=== PATIENT | male | born 1970 | race Caucasian/White ===

== ENCOUNTER 2023-01-02 20:23 | Emergency (ER) | payer MEDICARE, MEDICAID, SELFPAY ==
--- NOTE | ~2023-01-02 | US_ITS ---
EXAMINATION: US VENOUS ULTRASOUND WITH DOPPLER LOWER EXTREMITY, LEFT CLINICAL INFORMATION: Edema. Pain. COMPARISON: None available. TECHNIQUE: Ultrasound of the deep veins is performed from the hip to the calf with compression sonography and color and pulse Doppler assessment. Spectral analysis with color-flow imaging is performed. FINDINGS: There is normal venous compression and respiratory variation and augmented flow. The visualized common femoral vein, superficial femoral vein, profunda femoral vein, popliteal vein, and the trifurcation region shows no evidence of deep venous thrombosis. There is no significant popliteal fossa cyst. If the patient's symptoms persist, followup ultrasound in 5 days 7 days might be of value to exclude proximal propagation from a non-visualized calf vein. US/US venous duplex LE IMPRESSION: No DVT demonstrated in the left lower extremity.
--- NOTE | 2023-01-02 20:40 | ED.GENADULT ---
HPI - General Adult General Chief complaint: Extremity Injury, Lower <NELSON Esparza - Last Filed: 01/02/23 20:41> Stated complaint: L leg swelling <NELSON Esparza - Last Filed: 01/02/23 20:41> Time Seen by Provider: 01/03/23 01:01 <NELSON Esparza - Last Filed: 01/02/23 20:41> Source: patient <Mary De León MD - Last Filed: 01/03/23 01:25> Mode of arrival: ambulatory <Mary De León MD - Last Filed: 01/03/23 01:25> Limitations: no limitations <Mary De León MD - Last Filed: 01/03/23 01:25> History of Present Illness HPI narrative: Patient comes to the emergency room complaining of 3 days of erythema in the lateral aspect of the left lower extremity. Patient states that he has had cellulitis in the past. Patient denies any injury. Patient denies fever chills. Patient states that the lower extremity hurts from the ankle up to below the left knee. <Mary De León MD - Last Filed: 01/03/23 01:25> Related Data Home medications: Previous Rx's Medication Instructions Recorded cephalexin 500 mg capsule 500 mg PO BID #20 caps 01/03/23 doxycycline hyclate 100 mg capsule 100 mg PO BID #20 caps 01/03/23 <NELSON Esparza - Last Filed: 01/02/23 20:41> Allergies/adverse reactions: Allergies Allergy/AdvReac Type Severity Reaction Status Date / Time Unable to Assess Allergy Unverified 01/02/23 20:41 <NELSON Esparza - Last Filed: 01/02/23 20:41> Review of Systems Review of Systems: Constitutional : No Weight loss, No Fever, No Chills, No Night Sweats, No Fatigue, No Malaise ENT/Mouth : No Hearing loss, No Ear Pain, No Nasal Congestion, No Sinus Pain, No Hoarseness, No sore throat, No Rhinorrhea, No Swallowing Difficulty Eyes: No Eye Pain, No Swelling, No Redness, No Foreign Body, No Discharge, No Vision Changes Cardiovascular : No Chest Pain, No SOB, No Dyspnea on Exertion, No Orthopnea, No Edema, No Palpitations Respiratory : No Cough, No Sputum, No Wheezing, No Smoke Exposure, No Dyspnea Gastrointestinal : No Nausea, No Vomiting, No Diarrhea, No Constipation, No abdominal Pain, No Hematochezia, No Melena Genitourinary : no irregular bleeding, No Dysuria, No Urinary Frequency, No Hematuria, No Urinary Incontinence, No Urgency, No Flank Pain, No Urinary Flow Changes, No Hesitancy Musculoskeletal : Pain and swelling of the left lower extremity No Myalgias, No Joint Swelling Skin : Erythema in the lateral aspect of the left lower extremity Neuro : No Weakness, No Numbness, No Paresthesias, No Loss of Consciousness, No Dizziness, No Headache Psych : No Anxiety/Panic, No Depression, No SI/HI/AH/VH, No Social Issues, Heme/Lymph: No Bruising, No Bleeding,No Lymphadenopathy Endocrine : No Polyuria, No Polydipsia, No Temperature Intolerance <Mary De León MD - Last Filed: 01/03/23 01:25> [facility] Social History Social History: Social History Alcohol intake: never Smoked in Last 30 Days: No Use of substances other than those prescribed or required for medical reasons: No Advance Directives: No Advance Directives Information Provided: Yes <NELSON Esparza - Last Filed: 01/02/23 20:41> Physical Exam ED Vital Signs: Vital Signs - 24 hr 01/02/23 20:47 01/03/23 00:21 Temperature 98.4 F 98.1 F Pulse Rate 80 74 Respiratory Rate 16 19 Blood Pressure 155/91 H 170/86 H Pulse Oximetry 98 98 Oxygen Delivery Method Room Air Room Air BMI result Body Mass Index 35.9 <NELSON Esparza - Last Filed: 01/02/23 20:41> Vital Signs - 24 hr 01/02/23 20:47 01/03/23 00:21 Temperature 98.4 F 98.1 F Pulse Rate 80 74 Respiratory Rate 16 19 Blood Pressure 155/91 H 170/86 H Pulse Oximetry 98 98 Oxygen Delivery Method Room Air Room Air BMI result Body Mass Index 35.9 <Mary De León MD - Last Filed: 01/03/23 01:25> Const Other: Appearance: Alert. Oriented X3. No acute distress. Eyes: Pupils equal, round and reactive to light. ENT: Pharynx normal. Neck: Normal inspection. Neck supple. No lymph nodes noted. No crepitus CVS: Normal heart rate and rhythm. Pulses normal. Normal S1 and S2 Respiratory: No respiratory distress. Breath sounds normal. No Wheezing. No rales Abdomen: Soft and nontender. No rigidity. No distention. Skin: Skin warm and dry. There is a 15 x 10 cm patch of erythema in the left lower extremity on the lateral aspect Extremities: No lower extremity edema. No Lacerations, see skin above, minimal pain to palpation in the left calf Neuro: Oriented X 3. No motor deficit. No sensory deficit. Moving all extremities. No slurred speech. CN 2 through 12 grossly intact Psych: calm, cooperative, normal affect <Mary De León MD - Last Filed: 01/03/23 01:25> Course Course Course Narrative: RME performed by Ines Lund PA-C. Patient is a 52 year old assigned male at presenting to the emergency department with left lower leg pain. Patient states that it has gotten significantly more swollen over the last 2 days. Patient states that he is a diabetic. Labs, imaging, and swab ordered. Patient placed back in the waiting room pending room availability and results. <NELSON Espazra - Last Filed: 01/02/23 20:41> Medical Decision Making Medical Decision Making MDM Narrative: -ultrasound of the left lower extremity and fibula by me: Veins seem a patent, DVT not suspected. White blood cell count 9.2, no fever, no hypotension, sepsis not suspected. -patient will be started on p.o. antibiotics. <Mary De León MD - Last Filed: 01/03/23 01:25> Differential Diagnosis Differential Diagnoses: The differential diagnosis associated with the presentation includes (Cellulitis, contusion, DVT) <Mary De León MD - Last Filed: 01/03/23 01:25> Lab Data [facility] Lab Attestation statement: I reviewed the patient's lab results. <Mary De León MD - Last Filed: 01/03/23 01:25> Result Diagrams: 01/02/23 21:27 01/02/23 21:27 <NELSON Esparza - Last Filed: 01/02/23 20:41> Labs: Lab Results 01/02/23 01/02/23 01/02/23 Range/Units 21:27 21:27 21:27 WBC 9.2 (4.8-10.8) X10*3/uL RBC 5.65 (4.60-5.80) X10*6/uL Hgb 15.7 (14.0-18.0) g/dl Hct 44.7 (42.0-52.0) % MCV 79.1 L (80.0-98.0) fL MCH 27.8 (27.0-33.0) pg MCHC 35.1 (31.0-36.0) g/dl RDW 13.2 (11.0-16.0) % Plt Count 208 (160-400) X10*3/uL MPV 10.0 (9.4-12.4) fL Immature Gran % (Auto) 0.4 (0.0-0.4) % Neut % (Auto) 77.4 H (45-73) % Lymph % (Auto) 16.1 L (20-40) % [place] % (Auto) 5.3 (2-11) % Eos % (Auto) 0.5 (0-4) % Baso % (Auto) 0.3 (0-2) % Lymph # (Auto) 1.5 (1.2-4.9) X10*3/uL [place] # (Auto) 0.5 (0.1-1.2) X10*3/uL Eos # (Auto) 0.1 (0.0-0.4) X10*3/uL Baso # (Auto) 0.0 (0.0-0.2) X10*3/uL Abs Immat Gran (auto) 0.04 H (0.00-0.03) X10*3/uL Absolute Neuts (auto) 7.1 (2.0-8.3) x10*3/uL Absolute Nucleated RBC 0.000 (0.0-0.012) X10*3/uL Nucleated RBC % (auto) 0.0 (0.0-0.2) /100WBC ESR 6 (0-15) MM/HR Sodium 141 (135-145) mmol/L Potassium 3.8 (3.3-5.1) mmol/L Chloride 106 (96-108) mmol/L Carbon Dioxide 27 (22-29) mmol/L Anion Gap 12 (12-20) BUN 16 (9-16) mg/dL Creatinine 1.13 (0.5-1.4) mg/dL Estim Creat Clear Calc 96.4 Estimated GFR > 60 Random Glucose 329 H (60-115) mg/dL Calcium 9.5 (8.4-10.2) mg/dL Magnesium 2.0 (1.6-2.6) mg/dL Total Bilirubin 1.2 H (0.0-1.0) mg/dL AST 31 (5-37) U/L ALT 42 H (0-40) U/L Alkaline Phosphatase 68 (39-117) U/L C-Reactive Protein 0.35 (< or = 0.50) mg/dL Total Protein 6.9 (6.5-8.0) g/dL Albumin 4.3 (3.5-5.0) g/dL COVID-19 (LOIS) (Negative) COVID-19 Clin Com 01/02/23 Range/Units 21:27 WBC (4.8-10.8) X10*3/uL RBC (4.60-5.80) X10*6/uL Hgb (14.0-18.0) g/dl Hct (42.0-52.0) % MCV (80.0-98.0) fL MCH (27.0-33.0) pg MCHC (31.0-36.0) g/dl RDW (11.0-16.0) % Plt Count (160-400) X10*3/uL MPV (9.4-12.4) fL Immature Gran % (Auto) (0.0-0.4) % Neut % (Auto) (45-73) % Lymph % (Auto) (20-40) % [place] % (Auto) (2-11) % Eos % (Auto) (0-4) % Baso % (Auto) (0-2) % Lymph # (Auto) (1.2-4.9) X10*3/uL [place] # (Auto) (0.1-1.2) X10*3/uL Eos # (Auto) (0.0-0.4) X10*3/uL Baso # (Auto) (0.0-0.2) X10*3/uL Abs Immat Gran (auto) (0.00-0.03) X10*3/uL Absolute Neuts (auto) (2.0-8.3) x10*3/uL Absolute Nucleated RBC (0.0-0.012) X10*3/uL Nucleated RBC % (auto) (0.0-0.2) /100WBC ESR (0-15) MM/HR Sodium (135-145) mmol/L Potassium (3.3-5.1) mmol/L Chloride (96-108) mmol/L Carbon Dioxide (22-29) mmol/L Anion Gap (12-20) BUN (9-16) mg/dL Creatinine (0.5-1.4) mg/dL Estim Creat Clear Calc Estimated GFR Random Glucose (60-115) mg/dL Calcium (8.4-10.2) mg/dL Magnesium (1.6-2.6) mg/dL Total Bilirubin (0.0-1.0) mg/dL AST (5-37) U/L ALT (0-40) U/L Alkaline Phosphatase (39-117) U/L C-Reactive Protein (< or = 0.50) mg/dL Total Protein (6.5-8.0) g/dL Albumin (3.5-5.0) g/dL COVID-19 (LOIS) Negative (Negative) COVID-19 Clin Com See Note <NELSON Esparza - Last Filed: 01/02/23 20:41> Lab Results 01/02/23 01/02/23 01/02/23 Range/Units 21:27 21:27 21:27 WBC 9.2 (4.8-10.8) X10*3/uL RBC 5.65 (4.60-5.80) X10*6/uL Hgb 15.7 (14.0-18.0) g/dl Hct 44.7 (42.0-52.0) % MCV 79.1 L (80.0-98.0) fL MCH 27.8 (27.0-33.0) pg MCHC 35.1 (31.0-36.0) g/dl RDW 13.2 (11.0-16.0) % Plt Count 208 (160-400) X10*3/uL MPV 10.0 (9.4-12.4) fL Immature Gran % (Auto) 0.4 (0.0-0.4) % Neut % (Auto) 77.4 H (45-73) % Lymph % (Auto) 16.1 L (20-40) % [place] % (Auto) 5.3 (2-11) % Eos % (Auto) 0.5 (0-4) % Baso % (Auto) 0.3 (0-2) % Lymph # (Auto) 1.5 (1.2-4.9) X10*3/uL [place] # (Auto) 0.5 (0.1-1.2) X10*3/uL Eos # (Auto) 0.1 (0.0-0.4) X10*3/uL Baso # (Auto) 0.0 (0.0-0.2) X10*3/uL Abs Immat Gran (auto) 0.04 H (0.00-0.03) X10*3/uL Absolute Neuts (auto) 7.1 (2.0-8.3) x10*3/uL Absolute Nucleated RBC 0.000 (0.0-0.012) X10*3/uL Nucleated RBC % (auto) 0.0 (0.0-0.2) /100WBC ESR 6 (0-15) MM/HR Sodium 141 (135-145) mmol/L Potassium 3.8 (3.3-5.1) mmol/L Chloride 106 (96-108) mmol/L Carbon Dioxide 27 (22-29) mmol/L Anion Gap 12 (12-20) BUN 16 (9-16) mg/dL Creatinine 1.13 (0.5-1.4) mg/dL Estim Creat Clear Calc 96.4 Estimated GFR > 60 Random Glucose 329 H (60-115) mg/dL Calcium 9.5 (8.4-10.2) mg/dL Magnesium 2.0 (1.6-2.6) mg/dL Total Bilirubin 1.2 H (0.0-1.0) mg/dL AST 31 (5-37) U/L ALT 42 H (0-40) U/L Alkaline Phosphatase 68 (39-117) U/L C-Reactive Protein 0.35 (< or = 0.50) mg/dL Total Protein 6.9 (6.5-8.0) g/dL Albumin 4.3 (3.5-5.0) g/dL COVID-19 (LOIS) (Negative) COVID-19 Clin Com 01/02/23 Range/Units 21:27 WBC (4.8-10.8) X10*3/uL RBC (4.60-5.80) X10*6/uL Hgb (14.0-18.0) g/dl Hct (42.0-52.0) % MCV (80.0-98.0) fL MCH (27.0-33.0) pg MCHC (31.0-36.0) g/dl RDW (11.0-16.0) % Plt Count (160-400) X10*3/uL MPV (9.4-12.4) fL Immature Gran % (Auto) (0.0-0.4) % Neut % (Auto) (45-73) % Lymph % (Auto) (20-40) % [place] % (Auto) (2-11) % Eos % (Auto) (0-4) % Baso % (Auto) (0-2) % Lymph # (Auto) (1.2-4.9) X10*3/uL [place] # (Auto) (0.1-1.2) X10*3/uL Eos # (Auto) (0.0-0.4) X10*3/uL Baso # (Auto) (0.0-0.2) X10*3/uL Abs Immat Gran (auto) (0.00-0.03) X10*3/uL Absolute Neuts (auto) (2.0-8.3) x10*3/uL Absolute Nucleated RBC (0.0-0.012) X10*3/uL Nucleated RBC % (auto) (0.0-0.2) /100WBC ESR (0-15) MM/HR Sodium (135-145) mmol/L Potassium (3.3-5.1) mmol/L Chloride (96-108) mmol/L Carbon Dioxide (22-29) mmol/L Anion Gap (12-20) BUN (9-16) mg/dL Creatinine (0.5-1.4) mg/dL Estim Creat Clear Calc Estimated GFR Random Glucose (60-115) mg/dL Calcium (8.4-10.2) mg/dL Magnesium (1.6-2.6) mg/dL Total Bilirubin (0.0-1.0) mg/dL AST (5-37) U/L ALT (0-40) U/L Alkaline Phosphatase (39-117) U/L C-Reactive Protein (< or = 0.50) mg/dL Total Protein (6.5-8.0) g/dL Albumin (3.5-5.0) g/dL COVID-19 (LOIS) Negative (Negative) COVID-19 Clin Com See Note <Mary De León MD - Last Filed: 01/03/23 01:25> Radiology Impression Discussion of test interpretation with radiology: I have reviewed the radiologist's reading. <Mary De León MD - Last Filed: 01/03/23 01:25> Radiologist Impression: FINDINGS: There is normal venous compression and respiratory variation and augmented flow. The visualized common femoral vein, superficial femoral vein, profunda femoral vein, popliteal vein, and the trifurcation region shows no evidence of deep venous thrombosis. ? There is no significant popliteal fossa cyst. If the patient's symptoms persist, followup ultrasound in 5 days 7 days might be of value to exclude proximal propagation from a non-visualized calf vein. US/US venous duplex LE LT IMPRESSION: No DVT demonstrated in the left lower extremity. <Mary De León MD - Last Filed: 01/03/23 01:25> Discharge Plan Discharge Clinical Impression: Cellulitis <NELSON Esparza - Last Filed: 01/02/23 20:41> Patient Disposition: Home, Self-Care <NELSON Esparza - Last Filed: 01/02/23 20:41> Instructions: Cellulitis (ED) <NELSON Esparza - Last Filed: 01/02/23 20:41> Additional Instructions: Please follow-up with your primary care physician tomorrow. If you have any worsening or new symptoms, please return to the emergency room or call 911 <NELSON Esparza - Last Filed: 01/02/23 20:41> Prescriptions: New cephalexin 500 mg capsule 500 mg PO BID Qty: 20 0RF doxycycline hyclate 100 mg capsule 100 mg PO BID Qty: 20 0RF <NELSON Esparza - Last Filed: 01/02/23 20:41>
[2023-01-02 20:47] VITALS: BP 155/91; PULSE 80; RESP 16; TEMP 36.9; O2SAT 98; BMI 35.9
[2023-01-02 21:34] LABS: MANUAL DIFF FLAG NO
[2023-01-02 21:36] LABS: Basophils Percent Auto 0.3 % (0-2); Eosinophils Absolute Auto 0.1 X10*3/uL (0.0-0.4); Eosinophils Percent Auto 0.5 % (0-4); Hematocrit 44.7 % (42.0-52.0); Hemoglobin 15.7 g/dl (14.0-18.0); Imm Gran Abs Auto 0.04 X10*3/uL (0.00-0.03); Imm Gran Pct Auto 0.4 % (0.0-0.4); Lymphocytes Absolute Auto 1.5 X10*3/uL (1.2-4.9); Lymphocytes Percent Auto 16.1 % (20-40); Mean Corpuscular HGB Conc 35.1 g/dl (31.0-36.0); Mean Corpuscular Hemoglobin 27.8 pg (27.0-33.0); Mean Corpuscular Volume 79.1 fL (80.0-98.0); Monocytes Absolute Auto 0.5 X10*3/uL (0.1-1.2); Monocytes Percent Auto 5.3 % (2-11); Neutrophils Absolute Auto 7.1 x10*3/uL (2.0-8.3); Neutrophils Percent Auto 77.4 % (45-73); Platelet Count 208 X10*3/uL (160-400); Red Blood Count 5.65 X10*6/uL (4.60-5.80); Red Cell Distribution Width 13.2 % (11.0-16.0); White Blood Count 9.2 X10*3/uL (4.8-10.8)
[2023-01-02 21:49] LABS: COVID-19 Test Negative (Negative); IDNOW Serial# 08D9AD1C
[2023-01-02 21:55] LABS: Alanine Aminotransferase 42 U/L (0-40); Albumin Level 4.3 g/dL (3.5-5.0); Alkaline Phosphatase 68 U/L (39-117); Anion Gap 12 (12-20); Aspartate Amino Transferase 31 U/L (5-37); Bilirubin Total 1.2 mg/dL (0.0-1.0); Blood Urea Nitrogen 16 mg/dL (9-16); C Reactive Protein 0.35 mg/dL (< or = 0.50); Calcium 9.5 mg/dL (8.4-10.2); Carbon Dioxide 27 mmol/L (22-29); Chloride 106 mmol/L (96-108); Creatinine Clr Calc Pharmacy 96.4; Estimated Glomerular Filt Rate > 60; Glucose Random 329 mg/dL (60-115); Potassium 3.8 mmol/L (3.3-5.1); Sodium 141 mmol/L (135-145); Total Protein 6.9 g/dL (6.5-8.0)
[2023-01-02 22:23] LABS: Erythrocyte Sedimentation Rate 6 MM/HR (0-15)
[2023-01-03 00:21] VITALS: BP 170/86; PULSE 74; RESP 19; TEMP 36.7; O2SAT 98
--- OUTSIDE RECORDS SUMMARY | 2023-01-03 00:59 | XMS_ITS | Continuity of Care Document ---
Author Name Unknown Organization [facility] Adult Address [address] [place] [id number]- Care Team Providers Care Transport Tank Technician Name Role Phone Socrates KEMP, Jonathan Breaux Primary Care Physician [phone] Encounter [facility] Date(s): 09/06/21 - 10/06/21 [facility] [address] [place] [id number] Allergies, Adverse Reactions, Alerts No Known Allergies Immunizations Given and Recorded Vaccine Date Status Refusal Reason SARS-CoV-2 (COVID-19) mRNA BNT-162b2 vac 07/26/21 Recorded influenza virus vaccine, inactivated 07/02/21 Aleksandr rded influenza virus vaccine, inactivated 07/18/19 Give n SARS-CoV-2 (COVID-19) Ad26 vaccine 12/30/20 Given Influenza Virus Vaccine (oldterm) 07/09/20 Recorde d pneumococcal 23-valent vaccine 03/03/18 Given Medications amLODIPine 10 mg oral tablet 10 mg, 1, tablet, By Mouth, Daily, # 90 tablet, Refills 1, Tot. Refills 1, Maintenance, 09/26/21 13:46:00 EST, Route to Pharmacy Electronically, [facility] #[id number], 175.2, cm, 09/05/21 9:45:00 EST, Height Start Date: 09/26/21 Status: Ordered atorvastatin 10 mg oral tablet 1 tablet = 10 mg, By Mouth, Daily, # 90 tablet, 1 Refills, Maintenance, 09/26/21 13:22:00 EST, [facility] #[id number], 175.2, cm, 09/05/21 9:45:00 EST, Height Start Date: 09/26/21 Status: Ordered benazepril 20 mg oral tablet 1 tablet = 20 mg, By Mouth, Daily, # 90 tablet, 1 Refills, Maintenance, 09/11/21 13:36:00 EST, Tablet, [facility] #[id number], 175.2, cm, 09/05/21 9:45:00 EST, Height Start Date: 09/11/21 Status: Ordered Farxiga 5 mg oral tablet 1 tablet, By Mouth, Daily, # 90 tablet, 0 Refills, 09/26/21 13:22:00 EST, [facility] #[id number], 175.2, cm, 09/05/21 9:45:00 EST, Height Start Date: 09/26/21 Status: Ordered Freestyle Lite Lancets See Instructions, # 300 each, Refills 6, Tot. Refills 6, Maintenance, DMII E11.9 TESTING BID, 10/28/18 13:40:15 EST, Compound Start Date: 10/28/18 Stop Date: 05/26/19 Status: Ordered Freestyle Lite Monitor See Instructions, # 1 each, Refills 5, Tot. Refills 5, Maintenance, DMII E11.9 TESTING BID, 06/02/18 10:14:18 EDT, Compound Start Date: 06/02/18 Stop Date: 11/29/18 Status: Ordered Freestyle Lite Test Strips See Instructions, # 600 each, Refills 6, Tot. Refills 6, Maintenance, DMII E11.9 TESTING BID, 10/28/18 13:40:15 EST, Compound Start Date: 10/28/18 Stop Date: 07/19/20 Status: Ordered glipiZIDE 10 mg oral tablet, extended release 1 tablet = 10 mg, By Mouth, 2 times a day, with breakfast, # 180 tablet, 4 Refills, Maintenance, 09/07/20 13:22:00 EST, ER Tablet, [facility] #[id number], 175.2, cm, 09/07/20 12:25:00 EST, Height Start Date: 09/07/20 Stop Date: 12/01/21 Status: Ordered metFORMIN 1000 mg oral tablet 1 tablet = 1,000 mg, By Mouth, 2 times a day, with meals, # 180 tablet, 2 Refills, Maintenance, 12/03/21 15:55:00 EDT, Tablet, [facility] #[id number], 175.2, cm, 09/05/21 9:45:00 EST, Height Start Date: 12/03/21 Stop Date: 08/30/22 Status: Ordered metFORMIN 1000 mg oral tablet 1 tablet = 1,000 mg, By Mouth, 2 times a day, for 90 days, with meals, # 180 tablet, 0 Refills, Hard Stop 12/03/21 15:55:00 EDT, 09/04/21 15:55:00 EST, Tablet, [facility] #[id number], 175.2, cm,06/14/21 8:20:00 EDT, Height Start Date: 09/04/21 Stop Date: 12/03/21 Status: Ordered Use as directed. DX HTN Use as directed. DX HTN, See Instructions, # 1 each, Refills 0, Tot. 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
--- OUTSIDE RECORDS SUMMARY | 2023-01-03 00:59 | XMS_ITS | Continuity of Care Document ---
Author Name Unknown Organization [facility] Adult Address [address] [place] [address]- Care Team Providers Care Research Agricultural Engineer Name Role Phone Socrates KEMP, Jonathan Breaux Primary Care Physician [phone] Encounter [facility] [place] Date(s): 06/05/20 - 06/12/20 [facility] [address] [place] [id number] [facility] Encounter Diagnosis Left shoulder pain(Discharge Diagnosis) - 06/05/20 Attending Physician: Adelfo PRICE, Lissa Referring Physician: Jonathan Crowell NP Allergies, Adverse Reactions, Alerts Substance Reaction Severity Status NKA Active Immunizations Given and Recorded Vaccine Date Status Refusal Reason influenza virus vaccine, inactivated 07/18/19 Give n pneumococcal 23-valent vaccine 03/03/18 Given Medications amLODIPine 10 mg oral tablet 10 mg, 1, tablet, By Mouth, Daily, # 90 tablet, Refills 1, Tot. Refills 1, Maintenance, 07/18/19 13:55:22 EDT, Route to Pharmacy Electronically, [id number], [facility] #[id number] Start Date: 07/18/19 Status: Ordered atorvastatin 10 mg oral tablet 1 tablet = 10 mg, By Mouth, Daily, # 90 tablet, 3 Refills, Maintenance, 11/24/19 9:49:00 EST, [facility] #[id number], 175.2, cm, 11/24/19 9:25:00 EST, Height Start Date: 11/24/19 Stop Date: 06/21/20 Status: Ordered benazepril 20 mg oral tablet 1 tablet = 20 mg, By Mouth, Daily, # 90 tablet, 3 Refills, Maintenance, 06/05/20 10:10:00 EDT, Tablet, [email or web address] #[id number], 175.2, cm, 06/05/20 9:49:00 EDT, Height Start Date: 06/05/20 Status: Ordered Freestyle Lite Lancets See Instructions, [...] glipiZIDE 10 mg oral tablet, extended release 2 tablet = 20 mg, By Mouth, Daily, with breakfast, # 180 tablet, 2 Refills, Maintenance, 11/24/19 9:51:00 EST, ER Tablet, [facility] #[id number], 175.2, cm, 11/24/19 9:25:00 EST, Height Start Date: 11/24/19 Stop Date: 08/20/20 Status: Ordered metFORMIN 1000 mg oral tablet 1 tablet = 1,000 mg, By Mouth, 2 times a day, with meals, # 180 tablet, 2 Refills, Maintenance, 07/18/19 12:21:11 EDT, Tablet Start Date: 07/18/19 Status: Ordered Problem List Condition Effective Dates Status Health Status Inform ant Morbid obesity with BMI of 5 0.0-59.9, adult(Confirmed) Active Chest pain at rest(Confirmed) Active Chronic back pain(Confirmed) Active Hyperlipidemia(Confirmed) Active HTN (hypertension)(Confirmed) Active BALDEV on CPAP(Confirmed) Active DM (diabetes mellitus), type 2(Confirmed) Active Diagnosis Diagnosis Type Effective Dates Health Status Cl inical Service Informant Left shoulder pain Discharge Diagnosis 06/05/20 Vital Signs Most recent to oldest [Reference Range]: 1 Height 175.2 cm (06/05/20 9:49 AM) Weight 130.8 kg (06/05/20 9:49 AM) Oxygen Saturation [94-100 %] 96 % (06/05/20 9:49 AM) Pulse Rate [55-90 bpm] 78 bpm (06/05/20 9:49 AM) Body Mass Index [18.5-24.99] 42.61 *>HHI* (06/05/20 9:49 AM) Blood Pressure [90-138/55-84 mm Hg] 136/ 80mm Hg (06/05/20 9:49 AM) Respiratory Rate [16-30 br/min] 16 br/mi n (06/05/20 9:49 AM) Mode of Delivery (Oxygen) Room air (06/05/20 9:49 AM) Blood pressure sites Arm, left (06/05/20 9:49 AM) Weight Obtained Via Standing scale (06/05/20 9:49 AM) Social History Social History Type Response Smoking Status Never smoker entered on: 03/03/18 Sex
--- OUTSIDE RECORDS SUMMARY | 2023-01-03 00:59 | XMS_ITS | Continuity of Care Document ---
Author Name Unknown Organization [facility] Adult Address [address] [place] [address]- Care Team Providers Care National Sales Name Role Phone Socrates KEMP, Jonathan Breaux Primary Care Physician Encounter [facility] [place] Date(s): 05/20/22 - 06/21/22 [facility] [address] [place] [address]- Attending Physician: Sushil Pedro MD Allergies, Adverse Reactions, Alerts No Known Allergies [...] tablet, Refills 1, Tot. Refills 1, Maintenance, 06/13/22 10:32:00 EDT, Route to Pharmacy Electronically, [facility] #[id number], 175.2, cm, 06/13/22 10:31:00 EDT, Height, 129, kg, 11/18/21 10:28:00 EST, Dry... Start Date: 06/13/22 Status: Ordered atorvastatin 10 mg oral tablet 1 tablet = 10 mg, By Mouth, Daily, # 90 tablet, 1 Refills, Maintenance, 05/20/22 11:37:00 EDT, [facility] #[id number], 175.2, cm, 02/18/22 14:17:00 EDT, Height, 129, kg, 11/18/21 10:28:00 EST, Dry Weight Start Date: 05/20/22 Status: Ordered benazepril 40 mg oral tablet 1 tablet = 40 mg, By Mouth, Daily, # 90 tablet, 3 Refills, Maintenance, 10/09/21 10:38:00 EST, Tablet, [facility] #[id number], Partial fill upon patient request if the prescription is for a schedule II opioid drug. Dose increase, 175.2, cm, 10/09... Start Date: 10/09/21 Status: Ordered benazepril-hydrochlorothiazide 20 mg-12.5 mg oral tablet 1 tablet, By Mouth, Daily, # 90 tablet, 1 Refills, Maintenance, 06/13/22 10:34:00 EDT, Tablet, [facility] #[id number], Partial fill upon patient request if the prescription is for a schedule II opioid drug., 1 tablet By Mouth Daily, 175.2, cm, 09... Start Date: 06/13/22 Status: Ordered dapagliflozin 10 mg oral tablet 1 tablet = 10 mg, By Mouth, Daily, # 90 tablet, 2 Refills, Maintenance, 06/13/22 10:38:00 EDT, Tablet, [facility] #[id number], Partial fill upon patient request if the prescription is for a schedule II opioid drug., 175.2, cm, 06/13/22 10:31:00 E... Start Date: 06/13/22 Status: Ordered Eucerin Plus topical lotion 1 application, Topically, 2 times a day, PRN for dry skin, Please apply 10 times per day to affected area., # 354 mL, 2 Refills, Maintenance, 02/18/22 15:05:00 EDT, Lotion, [facility] #[id number], Partial fill upon patient request if the prescrip... Start Date: 02/18/22 Status: Ordered Freestyle Lite Lancets See Instructions, [...] a day, with breakfast, # 180 tablet, 1 Refills, Maintenance, 04/14/22 10:56:00 EDT, ER Tablet, [facility] #[id number], 175.2, cm, 02/18/22 14:17:00 EDT, Height, 129, kg, 11/18/21 10:28:00 EST, Dry Weight Start Date: 04/14/22 Stop Date: 10/11/22 Status: Ordered metFORMIN 1000 mg oral tablet 1 tablet = 1,000 mg, By Mouth, 2 times a day, with meals, # 180 tablet, 1 Refills, Maintenance, 05/20/22 13:32:00 EDT, Tablet, [facility] #[id number], 175.2, cm, 02/18/22 14:17:00 EDT, Height, 129, kg, 11/18/21 10:28:00 EST, Dry Weight Start Date: 05/20/22 Stop Date: 11/16/22 Status: Ordered oxyCODONE 5 mg oral tablet See Instructions, 1 tablet By Mouth Every 4-6 hours NEEDED FOR PAIN TAKE WITH FOOD. NO DRIVING. CAN CAUSE CONSTIPATION., Refills 0, Tot. Refills 0, Maintenance, 11/18/21 10:38:00 EST, InstructionsReplace Required Details, Partial fill upon patien... Start Date: 11/18/21 Status: Ordered silver sulfADIAZINE 1% topical cream 1 application, Topically, 2 times a day, # 15 Gm, 0 Refills, Maintenance, 02/11/22 10:42:00 EDT, Cream, Partial fill upon patient request if the prescription is for a schedule II opioid drug. Start Date: 02/11/22 Status: Ordered Tylenol Extra Strength 500 mg oral tablet 2 tablet = 1,000 mg, By Mouth, Every 8 hours, NEEDED FOR PAIN, 0 Refills, Maintenance, 11/18/21 10:39:00 EST, Tablet, Partial fill upon patient request if the prescription is for a schedule II opioid drug. Start Date: 11/18/21 Status: Ordered Use as directed. DX HTN Use as directed. DX HTN, See Instructions, # 1 each, Refills 0, Tot. Refills 0, Maintenance, BP machine/Cuff Use as directed, 09/05/21 9:46:00 EST, Compound Start Date: 09/05/21 Status: Ordered Problem List Condition Confirmation Course Effective Dates Status H ealth Status Informant Morbid obesity with BMI of 50.0-59.9, adult Confirmed Active Chest pain at rest Confirmed Active Chronic back pain Confirmed Active Ganglion of left ankle Confirmed Active Hyperlipidemia Confirmed Active HTN (hypertension) Confirmed Active BALDEV on CPAP Confirmed Active Proteinuria due to type 2 diabetes mellitus Confirmed Active Severe obesity Confirmed Active DM (diabetes mellitus), type 2 Confirmed Active Social History Social History Type Response Smoking Status Never smoker entered on: 03/03/18 Sex Patient Care team information Personnel Name: Jonathan Crowell NP Address: Address: [address] [place], [place] [address]
--- OUTSIDE RECORDS SUMMARY | 2023-01-03 00:59 | XMS_ITS | Continuity of Care Document ---
Author Name Unknown Organization [facility] Adult Address [address] [place] [phone]- Care Team Providers Care Marketing Research Coordinator Name Role Phone Socrates KEMP, Jonathan Breaux Primary Care Physician [place] [facility] [place] - 10/04/21 [facility] [address] [place] [id number] Attending Physician: Not on Staff, Attending MD Allergies, Adverse Reactions, Alerts No Known [...] 09/26/21 13:46:00 EST, Route to Pharmacy Electronically, [facility] #[id number], 175.2, cm, 09/05/21 9:45:00 EST, Height Start Date: 09/26/21 Status: Ordered atorvastatin 10 mg oral tablet 1 tablet = 10 mg, By Mouth, Daily, # 90 tablet, 1 Refills, Maintenance, 09/26/21 13:22:00 EST, [facility] #[id number], 175.2, cm, 09/05/21 9:45:00 EST, Height Start Date: 09/26/21 Status: Ordered benazepril 20 mg oral tablet 1 tablet = 20 mg, By Mouth, Daily, # 90 tablet, 1 Refills, Maintenance, 09/11/21 13:36:00 EST, Tablet, [facility] #[id number], 175.2, cm, 09/05/21 9:45:00 EST, Height Start Date: 09/11/21 Status: Ordered Farxiga 5 mg oral tablet 1 tablet, By Mouth, Daily, # 90 tablet, 0 Refills, 09/26/21 13:22:00 EST, [facility] #[id number], 175.2, cm, 09/05/21 9:45:00 EST, Height Start [...] Refills, Maintenance, 09/07/20 13:22:00 EST, ER Tablet, [facility] #[id number], 175.2, cm, 09/07/20 12:25:00 EST, Height Start Date: 09/07/20 Stop Date: 12/01/21 Status: Ordered metFORMIN 1000 mg oral tablet 1 tablet = 1,000 mg, By Mouth, 2 times a day, with meals, # 180 tablet, 2 Refills, Maintenance, 12/03/21 15:55:00 EDT, Tablet, [facility] #[id number], 175.2, cm, 09/05/21 9:45:00 EST, Height Start Date: 12/03/21 Stop Date: 08/30/22 Status: Ordered metFORMIN 1000 mg oral tablet 1 tablet = 1,000 mg, By Mouth, 2 times a day, for 90 days, with meals, # 180 tablet, 0 Refills, Hard Stop 12/03/21 15:55:00 EDT, 09/04/21 15:55:00 EST, Tablet, [facility] #[id number], 175.2, cm,06/14/21 8:20:00 EDT, Height Start Date: [...]
--- OUTSIDE RECORDS SUMMARY | 2023-01-03 00:59 | XMS_ITS | Continuity of Care Document ---
Author Name Unknown Organization [facility] Adult Address [address] [place] [address]- Care Team Providers Care Maintenance Representative Name Role Phone Jonathan Crowell NP Primary Care Physician Encounter [facility] [place] Date(s): 10/09/21 - 10/16/21 [facility] [address] [place] [id number]- Encounter Diagnosis HTN (hypertension)(Discharge Diagnosis) - 10/09/21 Attending Physician: Not on Staff, Attending MD [...] 09/26/21 13:46:00 EST, Route to Pharmacy Electronically, [facility] #[id number], 175.2, cm, 09/05/21 9:45:00 EST, Height Start Date: 09/26/21 Status: Ordered atorvastatin 10 mg oral tablet 1 tablet = 10 mg, By Mouth, Daily, # 90 tablet, 1 Refills, Maintenance, 09/26/21 13:22:00 EST, [facility] #[id number], 175.2, cm, 09/05/21 9:45:00 EST, Height Start Date: 09/26/21 Status: Ordered benazepril 40 mg oral tablet 1 tablet = 40 mg, By Mouth, Daily, # 90 tablet, 3 Refills, Maintenance, 10/09/21 10:38:00 EST, Tablet, [facility] #[id number], Partial fill upon patient request if the prescription is for a schedule II opioid drug. Dose increase, 175.2, cm, 10/09... Start Date: 10/09/21 Status: Ordered Farxiga 5 mg oral tablet 1 tablet, By Mouth, Daily, # 90 tablet, 0 Refills, 09/26/21 13:22:00 EST, [facility] #[id number], 175.2, cm, 09/05/21 9:45:00 EST, Height Start [...] times a day, for 90 days, with breakfast, # 180 tablet, 4 Refills, Hard Stop 12/01/21 13:22:00 EDT, 09/07/20 13:22:00 EST, ER Tablet, [facility] #[id number], 175.2,cm, 09/07/20 12:25:00 EST, Height Start Date: 09/07/20 Stop Date: 12/01/21 Status: Ordered glipiZIDE 10 mg oral tablet, extended release 1 tablet = 10 mg, By Mouth, 2 times a day, with breakfast, # 180 tablet, 1 Refills, Maintenance, 12/01/21 13:22:00 EDT, ER Tablet, [facility] #[id number], 175.2, cm, 10/09/21 10:42:00 EST, Height Start Date: 12/01/21 Stop Date: 05/30/22 Status: Ordered metFORMIN 1000 mg oral tablet 1 tablet = 1,000 mg, By Mouth, 2 times a day, with meals, # 180 tablet, 2 Refills, Maintenance, 12/03/21 15:55:00 EDT, Tablet, [facility] #[id number], 175.2, cm, 09/05/21 9:45:00 EST, Height Start Date: 12/03/21 Stop Date: 08/30/22 Status: Ordered metFORMIN 1000 mg oral tablet 1 tablet = 1,000 mg, By Mouth, 2 times a day, for 90 days, with meals, # 180 tablet, 0 Refills, Hard Stop 12/03/21 15:55:00 EDT, 09/04/21 15:55:00 EST, Tablet, [facility] #[id number], 175.2, cm,06/14/21 8:20:00 EDT, Height Start Date: [...] Dates Health Status Cl inical Service Informant HTN (hypertension) Discharge Diagnosis 10/09/21 Vital Signs Most recent to oldest [Reference Range]: 1 2 Height 175.2 cm (10/09/21 10:42 AM) 175.2 cm (10/09/21 8:54 AM) Blood Pressure [90-138/55-84 mm Hg] 131/ 95mm Hg (10/09/21 10:42 AM) Social History Social History Type Response Smoking Status Never smoker entered on: 03/03/18 Sex
--- OUTSIDE RECORDS SUMMARY | 2023-01-03 00:59 | XMS_ITS | Continuity of Care Document ---
Author Name Unknown Organization [facility] Adult Address [address] [place] [phone]- Care Team Providers Care Electric Organ Assembler And Checker Name Role Phone Socrates KEMP, Jonathan Breaux Primary Care Physician [place] [facility] [place] 07/02[place]21 - 08/01/21 [facility] [address] [place] [id number] Attending Physician: Admtr, [id number] Admitting Physician: Admtr, Ar8 Referring Physician: Admtr, Ar8 Allergies, Adverse Reactions, Alerts Substance Reaction Severity Status NKA Active Immunizations Given and Recorded Vaccine Date Status Refusal Reason influenza virus vaccine, inactivated 07/02/21 Aleksandr rded influenza virus vaccine, inactivated 07/18/19 Give n SARS-CoV-2 (COVID-19) Ad26 vaccine 12/30/20 Given Influenza Virus Vaccine (oldterm) 07/09/20 Recorde d pneumococcal 23-valent vaccine 03/03/18 Given Medications amLODIPine 10 mg oral tablet 10 mg, 1, tablet, By Mouth, Daily, # 90 tablet, Refills 3, Tot. Refills 3, Maintenance, 09/07/20 13:34:00 EST, Route to Pharmacy Electronically, [facility] #[id number], 175.2, cm, 09/07/20 12:25:00 EST, Height Start Date: 09/07/20 Status: Ordered atorvastatin 10 mg oral tablet 1 tablet = 10 mg, By Mouth, Daily, # 90 tablet, 3 Refills, Maintenance, 09/07/20 13:34:00 EST, [facility] #[id number], 175.2, cm, 09/07/20 12:25:00 EST, Height Start Date: 09/07/20 Status: Ordered benazepril 20 mg oral tablet 1 tablet = 20 mg, By Mouth, Daily, # 90 tablet, 3 Refills, Maintenance, 09/07/20 13:35:00 EST, Tablet, [facility] #[id number], 175.2, cm, 09/07/20 12:25:00 EST, Height Start Date: 09/07/20 Status: Ordered Farxiga 5 mg oral tablet 1 tablet, By Mouth, Daily, # 90 tablet, 0 Refills, [facility] #[id number], 175.2, cm, 09/07/2012:25:00 EST, Height Start Date: 06/07/21 Status: Ordered Freestyle Lite Lancets See Instructions, [...] Refills, Maintenance, 09/07/20 13:22:00 EST, ER Tablet, [facility] #[id number], 175.2, cm, 09/07/20 12:25:00 EST, Height Start [...]
--- OUTSIDE RECORDS SUMMARY | 2023-01-03 00:59 | XMS_ITS | Continuity of Care Document ---
Author Name Unknown Organization [facility] Adult Address [address] [place] [phone]- Care Team Providers Care Doggy Daycare Activities Director Name Role Phone Jonathan Crowell NP Primary Care Physician [place] [facility] [place] 04/02/22 [facility] [address] [place] [phone]- Attending Physician: Not on Staff, Attending MD [...] 09/26/21 13:46:00 EST, Route to Pharmacy Electronically, [facility] #[id number], 175.2, cm, 09/05/21 9:45:00 EST, Height Start Date: 09/26/21 Status: Ordered atorvastatin 10 mg oral tablet 1 tablet = 10 mg, By Mouth, Daily, # 90 tablet, 1 Refills, Maintenance, 09/26/21 13:22:00 EST, [facility] #[id number], 175.2, cm, 09/05/21 9:45:00 EST, Height Start Date: 09/26/21 Status: Ordered benazepril 40 mg oral tablet 1 tablet = 40 mg, By Mouth, Daily, # 90 tablet, 3 Refills, Maintenance, 10/09/21 10:38:00 EST, Tablet, [facility] #[id number], Partial fill upon patient request if the prescription is for a schedule II opioid drug. Dose increase, 175.2, cm, 10/09... Start Date: 10/09/21 Status: Ordered Eucerin Plus topical lotion 1 application, Topically, 2 times a day, PRN for dry skin, Please apply 10 times per day to affected area., # 354 mL, 2 Refills, Maintenance, 02/18/22 15:05:00 EDT, Lotion, [facility] #[id number], Partial fill upon patient request if the prescrip... Start Date: 02/18/22 Status: Ordered Farxiga 5 mg oral tablet 1 tablet, By Mouth, Daily, # 90 tablet, 0 Refills, 10/17/21 11:02:00 EST, [facility] #[id number], 175.2, cm, 10/09/21 10:42:00 EST, Height Start Date: 10/17/21 Status: Ordered Freestyle Lite Lancets See Instructions, [...] Refills, Maintenance, 12/01/21 13:22:00 EDT, ER Tablet, [facility] #[id number], 175.2, cm, 10/09/21 10:42:00 EST, Height Start Date: 12/01/21 Stop Date: 05/30/22 Status: Ordered metFORMIN 1000 mg oral tablet 1 tablet = 1,000 mg, By Mouth, 2 times a day, with meals, # 180 tablet, 2 Refills, Maintenance, 12/03/21 15:55:00 EDT, Tablet, [facility] #[id number], 175.2, cm, 09/05/21 9:45:00 EST, Height Start Date: 12/03/21 Stop Date: 08/30/22 Status: Ordered oxyCODONE 5 mg oral tablet [...]
--- OUTSIDE RECORDS SUMMARY | 2023-01-03 00:59 | XMS_ITS | Continuity of Care Document ---
Author Name Unknown Organization [facility] Adult Address [address] [place] [phone]- Care Team Providers Care Jukebox Operator Name Role Phone Socrates KEMP, Jonathan Breaux Primary Care Physician [place] [facility] [place](s): 09/06/21 - 10/06/21 [facility] [address] [place] [id number] Allergies, Adverse Reactions, Alerts No Known Allergies [...] 09/26/21 13:46:00 EST, Route to Pharmacy Electronically, [facility] #[id number], 175.2, cm, 09/05/21 9:45:00 EST, Height Start Date: 09/26/21 Status: Ordered atorvastatin 10 mg oral tablet 1 tablet = 10 mg, By Mouth, Daily, # 90 tablet, 1 Refills, Maintenance, 09/26/21 13:22:00 EST, [facility] #[id number], 175.2, cm, 09/05/21 9:45:00 EST, Height Start Date: 09/26/21 Status: Ordered benazepril 20 mg oral tablet 1 tablet = 20 mg, By Mouth, Daily, # 90 tablet, 1 Refills, Maintenance, 09/11/21 13:36:00 EST, Tablet, [facility] #[id number], 175.2, cm, 09/05/21 9:45:00 EST, Height Start Date: 09/11/21 Status: Ordered Farxiga 5 mg oral tablet 1 tablet, By Mouth, Daily, # 90 tablet, 0 Refills, 09/26/21 13:22:00 EST, [facility] #[id number], 175.2, cm, 09/05/21 9:45:00 EST, Height Start [...] Refills, Maintenance, 09/07/20 13:22:00 EST, ER Tablet, [facility] #[id number], 175.2, cm, 09/07/20 12:25:00 EST, Height Start Date: 09/07/20 Stop Date: 12/01/21 Status: Ordered metFORMIN 1000 mg oral tablet 1 tablet = 1,000 mg, By Mouth, 2 times a day, with meals, # 180 tablet, 2 Refills, Maintenance, 12/03/21 15:55:00 EDT, Tablet, [facility] #[id number], 175.2, cm, 09/05/21 9:45:00 EST, Height Start Date: 12/03/21 Stop Date: 08/30/22 Status: Ordered metFORMIN 1000 mg oral tablet 1 tablet = 1,000 mg, By Mouth, 2 times a day, for 90 days, with meals, # 180 tablet, 0 Refills, Hard Stop 12/03/21 15:55:00 EDT, 09/04/21 15:55:00 EST, Tablet, [facility] #[id number], 175.2, cm,06/14/21 8:20:00 EDT, Height Start Date: [...]
--- OUTSIDE RECORDS SUMMARY | 2023-01-03 00:59 | XMS_ITS | Continuity of Care Document ---
Author Name Unknown Organization [facility] Address Unknown Care Team Providers Care Dictating Machine Transcriber Name Role Phone Socrates KEMP, Jonathan Breaux Primary Care Physician [place] [facility] [place](s): 02/18/22 - 02/25/22 [facility] Attending Physician: Kiesha Styles MD Allergies, Adverse Reactions, Alerts No Known [...] 09/26/21 13:46:00 EST, Route to Pharmacy Electronically, [facility] #[id number], 175.2, cm, 09/05/21 9:45:00 EST, Height Start Date: 09/26/21 Status: Ordered atorvastatin 10 mg oral tablet 1 tablet = 10 mg, By Mouth, Daily, # 90 tablet, 1 Refills, Maintenance, 09/26/21 13:22:00 EST, [facility] #[id number], 175.2, cm, 09/05/21 9:45:00 EST, Height Start Date: 09/26/21 Status: Ordered benazepril 40 mg oral tablet 1 tablet = 40 mg, By Mouth, Daily, # 90 tablet, 3 Refills, Maintenance, 10/09/21 10:38:00 EST, Tablet, [facility] #[id number], Partial fill upon patient request if the prescription is for a schedule II opioid drug. Dose increase, 175.2, cm, 10/09... Start Date: 10/09/21 Status: Ordered Eucerin Plus topical lotion 1 application, Topically, 2 times a day, PRN for dry skin, Please apply 10 times per day to affected area., # 354 mL, 2 Refills, Maintenance, 02/18/22 15:05:00 EDT, Lotion, [facility] #[id number], Partial fill upon patient request if the prescrip... Start Date: 02/18/22 Status: Ordered Farxiga 5 mg oral tablet 1 tablet, By Mouth, Daily, # 90 tablet, 0 Refills, 10/17/21 11:02:00 EST, [facility] #[id number], 175.2, cm, 10/09/21 10:42:00 EST, Height Start [...] Refills, Maintenance, 12/01/21 13:22:00 EDT, ER Tablet, [facility] #[id number], 175.2, cm, 10/09/21 10:42:00 EST, Height Start Date: 12/01/21 Stop Date: 05/30/22 Status: Ordered metFORMIN 1000 mg oral tablet 1 tablet = 1,000 mg, By Mouth, 2 times a day, with meals, # 180 tablet, 2 Refills, Maintenance, 12/03/21 15:55:00 EDT, Tablet, [facility] #[id number], 175.2, cm, 09/05/21 9:45:00 EST, Height Start [...] Active DM (diabetes mellitus), type 2(Confirmed) Active Vital Signs Most recent to oldest [Reference Range]: 1 Height 175.2 cm (02/18/22 2:17 PM) Weight 130 kg (02/18/22 2:17 PM) Pulse Rate [55-90 bpm] 89 bpm (02/18/22 2:17 PM) Body Mass Index [18.5-24.99] 42.35 *>HHI* (02/18/22 2:17 PM) Blood Pressure [90-138/55-84 mm Hg] 139/ 68mm Hg *H* (02/18/22 2:17 PM) Temperature [96.8-100.4 DegF] 97.4 DegF (02/18/22 2:17 PM) Blood pressure sites Arm, left (02/18/22 2:17 PM) Temperature Route Temporal (02/18/22 2:17 PM) Weight Obtained Via Standing scale (02/18/22 2:17 PM) Social History Social History Type Response Smoking Status Never smoker entered on: 03/03/18 Sex
--- OUTSIDE RECORDS SUMMARY | 2023-01-03 00:59 | XMS_ITS | Continuity of Care Document ---
Author Name Unknown Organization [facility] Adult Address [address] [place] [phone]- Care Team Providers Care Cook Supervisor Name Role Phone Jonathan Crowell NP Primary Care Physician [place] [facility] [place](s): 10/17/21 - 11/16/21 [facility] [address] [place] [address]- Allergies, Adverse Reactions, Alerts No Known Allergies [...] 09/26/21 13:46:00 EST, Route to Pharmacy Electronically, [facility] #[id number], 175.2, cm, 09/05/21 9:45:00 EST, Height Start Date: 09/26/21 Status: Ordered atorvastatin 10 mg oral tablet 1 tablet = 10 mg, By Mouth, Daily, # 90 tablet, 1 Refills, Maintenance, 09/26/21 13:22:00 EST, [facility] #[id number], 175.2, cm, 09/05/21 9:45:00 EST, Height Start Date: 09/26/21 Status: Ordered benazepril 40 mg oral tablet 1 tablet = 40 mg, By Mouth, Daily, # 90 tablet, 3 Refills, Maintenance, 10/09/21 10:38:00 EST, Tablet, [facility] #[id number], Partial fill upon patient request if the prescription is for a schedule II opioid drug. Dose increase, 175.2, cm, 10/09... Start Date: 10/09/21 Status: Ordered Farxiga 5 mg oral tablet 1 tablet, By Mouth, Daily, # 90 tablet, 0 Refills, 10/17/21 11:02:00 EST, [facility] #[id number], 175.2, cm, 10/09/21 10:42:00 EST, Height Start [...] Refills, Maintenance, 12/01/21 13:22:00 EDT, ER Tablet, [facility] #[id number], 175.2, cm, 10/09/21 10:42:00 EST, Height Start Date: 12/01/21 Stop Date: 05/30/22 Status: Ordered metFORMIN 1000 mg oral tablet 1 tablet = 1,000 mg, By Mouth, 2 times a day, with meals, # 180 tablet, 2 Refills, Maintenance, 12/03/21 15:55:00 EDT, Tablet, [facility] #[id number], 175.2, cm, 09/05/21 9:45:00 EST, Height Start Date: 12/03/21 Stop Date: 08/30/22 Status: Ordered Use as directed. DX HTN [...]
--- OUTSIDE RECORDS SUMMARY | 2023-01-03 00:59 | XMS_ITS | Continuity of Care Document ---
Author Name Unknown Organization [facility] Adult Address [address] [place] [phone]- Care Team Providers Care Programmer Or Analyst Name Role Phone Jonathan Crowell NP Primary Care Physician Encounter [facility] Date(s): 06/13/22 - 06/20/22 [facility] [address] [place] [id number]- Encounter Diagnosis Left ankle pain(Discharge Diagnosis) - 06/13/22 DM (diabetes mellitus), type 2(Discharge Diagnosis) - 06/13/22 HTN (hypertension)(Discharge Diagnosis) - 06/13/22 Hyperlipidemia(Discharge Diagnosis) - 06/13/22 Morbid obesity with BMI of 50.0-59.9, adult(Discharge Diagnosis) - 06/13/22 Proteinuria due to type 2 diabetes mellitus(Discharge Diagnosis) - 06/13/22 Attending Physician: Not on Staff, Attending MD [...] 06/13/22 10:32:00 EDT, Route to Pharmacy Electronically, [facility] #[id number], 175.2, cm, 06/13/22 10:31:00 EDT, Height, 129, kg, 11/18/21 10:28:00 EST, Dry... Start Date: 06/13/22 Status: Ordered atorvastatin 10 mg oral tablet 1 tablet = 10 mg, By Mouth, Daily, # 90 tablet, 1 Refills, Maintenance, 05/20/22 11:37:00 EDT, [facility] #[id number], 175.2, cm, 02/18/22 14:17:00 EDT, Height, 129, kg, 11/18/21 10:28:00 EST, Dry Weight Start Date: 05/20/22 Status: Ordered benazepril 40 mg oral tablet 1 tablet = 40 mg, By Mouth, Daily, # 90 tablet, 3 Refills, Maintenance, 10/09/21 10:38:00 EST, Tablet, [facility] #[id number], Partial fill upon patient request if the prescription is for a schedule II opioid drug. Dose increase, 175.2, cm, 10/09... Start Date: 10/09/21 Status: Ordered benazepril-hydrochlorothiazide 20 mg-12.5 mg oral tablet 1 tablet, By Mouth, Daily, # 90 tablet, 1 Refills, Maintenance, 06/13/22 10:34:00 EDT, Tablet, [facility] #[id number], Partial fill upon patient request if the prescription is for a schedule II opioid drug., 1 tablet By Mouth Daily, 175.2, cm, 09... Start Date: 06/13/22 Status: Ordered dapagliflozin 10 mg oral tablet 1 tablet = 10 mg, By Mouth, Daily, # 90 tablet, 2 Refills, Maintenance, 06/13/22 10:38:00 EDT, Tablet, [facility] #[id number], Partial fill upon patient request if the prescription is for a schedule II opioid drug., 175.2, cm, 06/13/22 10:31:00 E... Start Date: 06/13/22 Status: Ordered Eucerin Plus topical lotion 1 application, Topically, 2 times a day, PRN for dry skin, Please apply 10 times per day to affected area., # 354 mL, 2 Refills, Maintenance, 02/18/22 15:05:00 EDT, Lotion, [facility] #[id number], Partial fill upon patient request if the [...] Refills, Maintenance, 04/14/22 10:56:00 EDT, ER Tablet, [facility] #[id number], 175.2, cm, 02/18/22 14:17:00 EDT, Height, 129, kg, 11/18/21 10:28:00 EST, Dry Weight Start Date: 04/14/22 Stop Date: 10/11/22 Status: Ordered metFORMIN 1000 mg oral tablet 1 tablet = 1,000 mg, By Mouth, 2 times a day, with meals, # 180 tablet, 1 Refills, Maintenance, 05/20/22 13:32:00 EDT, Tablet, [facility] #[id number], 175.2, cm, 02/18/22 14:17:00 EDT, Height, 129, [...] DM (diabetes mellitus), type 2 Confirmed Active Diagnosis Diagnosis Type Effective Dates Health Status Clinical Service Informant Left ankle pain Discharge Diagnosis 06/13/22 DM (diabetes mellitus), type 2 Discharge Diagnosis 06/13/22 HTN (hypertension) Discharge Diagnosis 06/13/22 Hyperlipidemia Discharge Diagnosis 06/13/22 Morbid obesity with BMI of 50.0-59.9, adult Discharge Diagnosis 06/13/22 Proteinuria due to type 2 diabetes mellitus Discharge Diagnosis 06/13/22 Vital Signs Most recent to oldest [Reference Range]: 1 2 3 Height 175.2 cm (06/13/22 10:31 AM) 175.2 cm (06/13/22 9:56 AM) 175.2 cm (06/13/22 9:46 AM) Weight 132.4 kg (06/13/22 9:46 AM) Oxygen Saturation [94-100 %] 97 % (06/13/22 9:46 AM) Pulse Rate [55-90 bpm] 87 bpm (06/13/22 9:46 AM) Body Mass Index [18.5-24.99 kg/m2] 43.13 kg/m2 *>HHI* (06/13/22 9:46 AM) Blood Pressure [90-138/55-84 mm Hg] 162/102mm Hg *H* (06/13/22 10:31 AM) 176/102mm Hg *H* (06/13/22 9:56 AM) 180/116mm Hg *H* (06/13/22 9:46 AM) Mode of Delivery (Oxygen) Room air (06/13/22 9:46 AM) Blood pressure sites Arm, left (06/13/22 10:31 AM) Arm, right (06/13/22 9:56 AM) Arm, right (06/13/22 9:46 AM) Weight Obtained Via Standing scale (06/13/22 9:46 AM) Social History Social History Type Response Smoking Status Never smoker entered on: 03/03/18 Sex Patient Care team information Personnel Name: Jonathan Crowell NP Address: Address: [address] [facility] [address]rd floor [place], [place] [address]
--- OUTSIDE RECORDS SUMMARY | 2023-01-03 00:59 | XMS_ITS | Continuity of Care Document ---
Author Name Unknown Organization [facility] Adult Address [address] [place] [address]- Care Team Providers Care Safety Compliance Specialist Name Role Phone Socrates KEMP, Jonathan Breaux Primary Care Physician Encounter [facility] Date(s): 06/10/21 - 07/10/21 [facility] [address] [place] [id number] Allergies, Adverse Reactions, Alerts Substance Reaction Severity [...] 09/07/20 13:34:00 EST, Route to Pharmacy Electronically, [facility] #[id number], 175.2, cm, 09/07/20 12:25:00 EST, Height Start Date: 09/07/20 Status: Ordered atorvastatin 10 mg oral tablet 1 tablet = 10 mg, By Mouth, Daily, # 90 tablet, 3 Refills, Maintenance, 09/07/20 13:34:00 EST, [facility] #[id number], 175.2, cm, 09/07/20 12:25:00 EST, Height Start Date: 09/07/20 Status: Ordered benazepril 20 mg oral tablet 1 tablet = 20 mg, By Mouth, Daily, # 90 tablet, 3 Refills, Maintenance, 09/07/20 13:35:00 EST, Tablet, [facility] #[id number], 175.2, cm, 09/07/20 12:25:00 EST, Height Start Date: 09/07/20 Status: Ordered Farxiga 5 mg oral tablet 1 tablet, By Mouth, Daily, # 90 tablet, 0 Refills, [facility] #[id number], 175.2, cm, 09/07/2012:25:00 EST, Height Start Date: [...] Refills, Maintenance, 09/07/20 13:22:00 EST, ER Tablet, [facility] #[id number], 175.2, cm, 09/07/20 12:25:00 EST, Height Start [...]
--- OUTSIDE RECORDS SUMMARY | 2023-01-03 00:59 | XMS_ITS | Continuity of Care Document ---
Author Name Unknown Organization [facility] Adult Address [address] [place] [address]- Care Team Providers Care Clinical Massage Therapist Name Role Phone Socrates KEMP, Jonathan Breaux Primary Care Physician Encounter [facility] Date(s): 07/01/21 - 07/31/21 [facility] [address] [place] [id number] Allergies, Adverse Reactions, Alerts Substance [...] 09/07/20 13:34:00 EST, Route to Pharmacy Electronically, [facility] #[id number], 175.2, cm, 09/07/20 12:25:00 EST, Height Start Date: 09/07/20 Status: Ordered atorvastatin 10 mg oral tablet 1 tablet = 10 mg, By Mouth, Daily, # 90 tablet, 3 Refills, Maintenance, 09/07/20 13:34:00 EST, [facility] #[id number], 175.2, cm, 09/07/20 12:25:00 EST, Height Start Date: 09/07/20 Status: Ordered benazepril 20 mg oral tablet 1 tablet = 20 mg, By Mouth, Daily, # 90 tablet, 3 Refills, Maintenance, 09/07/20 13:35:00 EST, Tablet, [facility] #[id number], 175.2, cm, 09/07/20 12:25:00 EST, Height Start Date: 09/07/20 Status: Ordered Farxiga 5 mg oral tablet 1 tablet, By Mouth, Daily, # 90 tablet, 0 Refills, [facility] #53751, 175.2, cm, 09/07/2012:25:00 EST, Height Start Date: [...] Refills, Maintenance, 09/07/20 13:22:00 EST, ER Tablet, [facility] #[id number], 175.2, cm, 09/07/20 12:25:00 EST, Height Start [...]
--- OUTSIDE RECORDS SUMMARY | 2023-01-03 00:59 | XMS_ITS | Continuity of Care Document ---
Author Name Unknown Organization [facility] Address Unknown Care Team Providers Care Race Steward Name Role Phone Jonathan Crowell NP Primary Care Physician Encounter [facility] Date(s): 02/18/22 - 03/20/22 [facility] Attending Physician: Lizbet Wade Admitting Physician: Lizbet Wade Referring Physician: AdmtrLizbet Allergies, Adverse Reactions, Alerts No Known Allergies [...] 09/26/21 13:46:00 EST, Route to Pharmacy Electronically, [facility] #[id number], 175.2, cm, 09/05/21 9:45:00 EST, Height Start Date: 09/26/21 Status: Ordered atorvastatin 10 mg oral tablet 1 tablet = 10 mg, By Mouth, Daily, # 90 tablet, 1 Refills, Maintenance, 09/26/21 13:22:00 EST, [facility] #[id number], 175.2, cm, 09/05/21 9:45:00 EST, Height Start Date: 09/26/21 Status: Ordered benazepril 40 mg oral tablet 1 tablet = 40 mg, By Mouth, Daily, # 90 tablet, 3 Refills, Maintenance, 10/09/21 10:38:00 EST, Tablet, [facility] #[id number], Partial fill upon patient request if the prescription is for a schedule II opioid drug. Dose increase, 175.2, cm, 10/09... Start Date: 10/09/21 Status: Ordered Eucerin Plus topical lotion 1 application, Topically, 2 times a day, PRN for dry skin, Please apply 10 times per day to affected area., # 354 mL, 2 Refills, Maintenance, 02/18/22 15:05:00 EDT, Lotion, [facility] #[id number], Partial fill upon patient request if the prescrip... Start Date: 02/18/22 Status: Ordered Farxiga 5 mg oral tablet 1 tablet, By Mouth, Daily, # 90 tablet, 0 Refills, 10/17/21 11:02:00 EST, [facility] #[id number], 175.2, cm, 10/09/21 10:42:00 EST, Height Start [...] Refills, Maintenance, 12/01/21 13:22:00 EDT, ER Tablet, [facility] #[id number], 175.2, cm, 10/09/21 10:42:00 EST, Height Start Date: 12/01/21 Stop Date: 05/30/22 Status: Ordered metFORMIN 1000 mg oral tablet 1 tablet = 1,000 mg, By Mouth, 2 times a day, with meals, # 180 tablet, 2 Refills, Maintenance, 12/03/21 15:55:00 EDT, Tablet, [facility] #[id number], 175.2, cm, 09/05/21 9:45:00 EST, Height Start [...]
--- OUTSIDE RECORDS SUMMARY | 2023-01-03 00:59 | XMS_ITS | Continuity of Care Document ---
Author Name Unknown Organization [facility] Adult Address [address] [place] [address]- Care Team Providers Care Software Tools Developer Name Role Phone Jonathan Crowell NP Primary Care Physician Encounter [facility] Date(s): 12/09/19 - 04/07/20 [facility] [address] [place] [phone] [facility] Attending Physician: Jonathan Crowell NP Referring Physician: Lissa Emanuel MD Allergies, Adverse Reactions, Alerts Substance Reaction Severity Status NKA Active Immunizations Given and Recorded Vaccine Date Status Refusal Reason influenza virus vaccine, inactivated 07/18/19 Give n pneumococcal 23-valent vaccine 03/03/18 Given Medications amLODIPine 10 mg oral tablet 10 mg, 1, tablet, By Mouth, Daily, # 90 tablet, Refills 1, Tot. Refills 1, Maintenance, 07/18/19 13:55:22 EDT, Route to Pharmacy Electronically, [id number], [facility] #[id number] Start Date: 07/18/19 Status: Ordered atorvastatin 10 mg oral tablet 1 tablet = 10 mg, By Mouth, Daily, # 90 tablet, 3 Refills, Maintenance, 11/24/19 9:49:00 EST, [facility] #[id number], 175.2, cm, 11/24/19 9:25:00 EST, Height Start Date: 11/24/19 Stop Date: 06/21/20 Status: Ordered benazepril 20 mg oral tablet 1 tablet = 20 mg, By Mouth, Daily, # 90 tablet, 2 Refills, Maintenance, 04/02/20 10:06:00 EDT, Tablet, [facility] #[id number], 175.2, cm, 04/02/20 10:05:00 EDT, Height Start Date: 04/02/20 Status: Ordered Freestyle Lite Lancets See Instructions, [...] Refills, Maintenance, 11/24/19 9:51:00 EST, ER Tablet, [facility] #[id number], 175.2, cm, 11/24/19 9:25:00 EST, Height Start Date: 11/24/19 Stop Date: 08/20/20 Status: Ordered indomethacin 50 mg oral capsule 1 capsule = 50 mg, By Mouth, 3 times a day, PRN for arthritis, with food or milk, # 30 capsule, 0 Refills, Maintenance, 04/02/20 12:35:00 EDT, Capsule, [facility] #[id number], 175.2, cm, 04/02/20 10:05:00 EDT, Height Start Date: 04/02/20 Status: Ordered metFORMIN 1000 mg oral tablet [...]
--- OUTSIDE RECORDS SUMMARY | 2023-01-03 00:59 | XMS_ITS | Continuity of Care Document ---
Author Name Unknown Organization [facility] Adult Address [address] [place] [phone]- Care Team Providers Care Upholstery Sewer Name Role Phone Socrates FINANCIAL SALES CONSULTANT, Jonathan Breaux Primary Care Physician Encounter [facility] Date(s): 10/20/22 - 10/27/[address] [facility] [address] [place] [id number]- Encounter Diagnosis DM (diabetes mellitus), type 2(Discharge Diagnosis) - 10/20/22 Proteinuria due to type 2 diabetes mellitus(Discharge Diagnosis) - 10/20/22 Severe obesity(Discharge Diagnosis) - 10/20/22 HTN (hypertension)(Discharge Diagnosis) - 10/20/22 Hyperlipidemia(Discharge Diagnosis) - 10/20/22 Attending Physician: Stephie Mathews Allergies, Adverse Reactions, Alerts No Known Allergies Immunizations Given and Recorded Vaccine Date Status Refusal Reason tetanus/diphtheria/pertussis, acel(Tdap) 08/26/22 Recorded [id number] 12y+ bivalent booster vax 08/04/22 Recorded influenza virus vaccine, inactivated 07/07/22 Give n influenza virus vaccine, inactivated 07/02/21 Aleksandr rded influenza virus vaccine, inactivated 07/18/19 Give n SARS-CoV-2 (COVID-19) mRNA BNT-162b2 vac 07/26/21 Recorded SARS-CoV-2 (COVID-19) Ad26 vaccine 12/30/20 Given Influenza Virus Vaccine (oldterm) 07/09/20 Recorde d pneumococcal 23-valent vaccine 03/03/18 Given Medications amLODIPine 10 mg oral tablet 10 mg, 1, tablet, By Mouth, Daily, # 90 tablet, Refills 1, Tot. Refills 1, Maintenance, 07/04/22 9:54:00 EDT, Route to Pharmacy Electronically, [facility] #[id number], 175.2, cm, 07/04/22 9:42:00 EDT, Height, 129, kg, 11/18/21 10:28:00 EST, Dry W... Start Date: 07/04/22 Status: Ordered atorvastatin 10 mg oral tablet 1 tablet = 10 mg, By Mouth, Daily, # 90 tablet, 1 Refills, Maintenance, 05/20/22 11:37:00 EDT, [facility] #[id number], 175.2, cm, 02/18/22 14:17:00 EDT, Height, 129, kg, 11/18/21 10:28:00 EST, Dry Weight Start Date: 05/20/22 Status: Ordered benazepril-hydrochlorothiazide 20 mg-12.5 mg oral tablet 1 tablet, By Mouth, Daily, # 90 tablet, 1 Refills, Maintenance, 07/04/22 9:54:00 EDT, Tablet, [facility] #[id number], Partial fill upon patient request if the prescription is for a schedule II opioid drug., 1 tablet By Mouth Daily, 175.2, cm, ... Start Date: 07/04/22 Status: Ordered dapagliflozin 10 mg oral tablet 1 tablet = 10 mg, By Mouth, Daily, # 90 tablet, 2 Refills, Maintenance, 06/13/22 10:38:00 EDT, Tablet, [facility] #[id number], Partial fill upon patient request if the prescription is for a schedule II opioid drug., 175.2, cm, 06/13/22 10:31:00 E... Start Date: 06/13/22 Status: Ordered Eucerin Plus topical lotion 1 application, Topically, 2 times a day, PRN for dry skin, Please apply 10 times per day to affected area., # 354 mL, 2 Refills, Maintenance, 02/18/22 15:05:00 EDT, Lotion, [facility] #[id number], Partial fill upon patient request if the [...] Refills, Maintenance, 04/14/22 10:56:00 EDT, ER Tablet, [facility] #[id number], 175.2, cm, 02/18/22 14:17:00 EDT, Height, 129, kg, 11/18/21 10:28:00 EST, Dry Weight Start Date: 04/14/22 Stop Date: 10/11/22 Status: Ordered metFORMIN 1000 mg oral tablet 1 tablet = 1,000 mg, By Mouth, 2 times a day, with meals, # 180 tablet, 1 Refills, Maintenance, 05/20/22 13:32:00 EDT, Tablet, [facility] #[id number], 175.2, cm, 02/18/22 14:17:00 EDT, Height, 129, kg, 11/18/21 10:28:00 EST, Dry Weight Start Date: 05/20/22 Stop Date: 11/16/22 Status: Ordered Tylenol Extra Strength 500 mg [...] Effective Dates Health Status Clinical Service Informant DM (diabetes mellitus), type 2 Discharge Diagnosis 10/20/22 Proteinuria due to type 2 diabetes mellitus Discharge Diagnosis 10/20/22 Severe obesity Discharge Diagnosis 10/20/22 HTN (hypertension) Discharge Diagnosis 10/20/22 Hyperlipidemia Discharge Diagnosis 10/20/22 Vital Signs Most recent to oldest [Reference Range]: 1 Height 175.2 cm (10/20/22 4:10 PM) Weight 128 kg (10/20/22 4:10 PM) Oxygen Saturation [94-100 %] 97 % (10/20/22 4:10 PM) Pulse Rate [55-90 bpm] 70 bpm (10/20/22 4:10 PM) Body Mass Index [18.5-24.99 kg/m2] 41.7 kg/m2 *>HHI* (10/20/22 4:10 PM) Blood Pressure [90-138/55-84 mm Hg] 133/ 78mm Hg (10/20/22 4:10 PM) Temperature [96.8-100.4 DegF] 98 DegF (10/20/22 4:10 PM) Mode of Delivery (Oxygen) Room air (10/20/22 4:10 PM) Blood pressure sites Arm, left (10/20/22 4:10 PM) Temperature Route Temporal (10/20/22 4:10 PM) Weight Obtained Via Standing scale (10/20/22 4:10 PM) Social History Social History Type Response Smoking Status Never smoker entered on: 03/03/18 Sex Note * Candida Moralez: PERFORM, SIGN, VERIFY Event Display: Patient Education/Instruction Authored Date: [id number] [facility] *[facility] Clinical Summary Name NILESH POOL Age 52 Years 1970 PCP Socrates KEMP, Jonahtan Breaux PCP Visit Date 10/20/2022 16:08:00 Additional Instructions: Scheduled Appointments?? Future Appointments ?No Future Appointments Scheduled Follow-Up Instructions ?? Diagnosis Type 2 diabetes mellitus without complications Medications: Please continue your medications until treatment is completed or stopped by your provider. Discuss any questions related to medications with your provider. Medications to Continue with No Changes These medications were not printed or sent to your pharmacy Acetaminophen (Tylenol Extra Strength 500 mg oral tablet) 2 tab(s) Oral every 8 hours. NEEDED FOR PAIN. Next Dose: Amlodipine (amLODIPine 10 mg oral tablet) 1 tab(s) Oral Daily. Refills: 1. Next Dose: Atorvastatin (atorvastatin 10 mg oral tablet) 1 tab(s) Oral Daily. Refills: 1. Next Dose: Benazepril-Hydrochlorothiazide (benazepril-hydrochlorothiazide 20 mg-12.5 mg oral tablet) 1 tab(s) Oral Daily. Refills: 1. Next Dose: dapagliflozin (dapagliflozin 10 mg oral tablet) 1 tab(s) Oral Daily. Refills: 2. Next Dose: Durable Medical Equipment (Freestyle Lite Lancets) DMII E11.9 TESTING BID. Refills: 6. Next Dose: Durable Medical Equipment (Freestyle Lite Monitor) DMII E11.9 TESTING BID. Refills: 5. Next Dose: Durable Medical Equipment (Freestyle Lite Test Strips) DMII E11.9 TESTING BID. Refills: 6. Next Dose: Emollients, Topical (Eucerin Plus topical lotion) 1 aylin Topically twice a day as needed for dry skin. Please apply 10 times per day to affected area.. Refills: 2. Next Dose: GlipiZIDE (glipiZIDE 10 mg oral tablet, extended release) 1 tab(s) Oral twice a day for 90 Days. with breakfast. Refills: 1. Next Dose: Metformin (metFORMIN 1000 mg oral tablet) 1 tab(s) Oral twice a day for 90 Days. with meals. Refills: 1. Next Dose: Miscellaneous Rx (Use as directed. DX HTN) BP machine/Cuff Use as directed. Refills: 0. Next Dose: Allergy Info:?? NKA Medications Given This Visit Future Orders ?Hemoglobin A1C (Monitoring)? Order Date:10/20/22?- Complete by?10/20/22 Vital Signs Height 175.2 cm Weight 128 kg BMI 41.7 kg/m2 Blood Pressure 133 mm Hg/78 mm Hg Temperature 98 DegF Pulse Rate 70 bpm Respiratory Rate 02 Sat Mode of Delivery 97 %/Room air You can now view a summary of your hospital visit from the comfort of your home through a free online portal called [employer]. [employer] is a website that allows you to securely view your medical information including discharge summary, medications and follow-up visits. ??You can alsosend a secure electronic message to your doctor???s office to request appointments, renew medications or just ask a question. You can enroll at [email or web address] or register during your next office visit. Disclaimer:?? The information provided is of a general nature and is intended to be used in conjunction with the recommendations and advice of your health care practitioner. ??Every effort has been made to ensure that the information provided is accurate and complete at the time it is provided to you however, as your needs change, or, as new ??information becomes available, different or additional instructions may be required. If you have questions, please consult with your primary care provider or pharmacist, as appropriate. ??This information is not intended to serve as substitution for assessment and evaluation by a qualified health care provider. If you do not have a primary care provider, you may find a [facility] provider by calling [facility] [employer] [facility] at [phone]. For information about the plan of care including goals and instructions for your diagnosis, please see the patient education orders section of this document. Patient Education Materials?? The content of this educational material or handout may have been modified, supplemented, or adapted from its original content and format to support your individualized medical care. Patient Care team information Care Team Personnel Name: Jonathan Crowell NP Position: [facility] PCO Associate Professional Member Role: PCP Address: Address: [address] [facility] [address] [facility] [address]rd [place] [address]- Care Team Related Persons Name: ERIN DUFF Address: home [address] [place] [address] Name: NILESH SCHNEIDER Address: home [address] [place] [address] Name: NILESH POOL Address: [address] [place] [address]
--- OUTSIDE RECORDS SUMMARY | 2023-01-03 00:59 | XMS_ITS | Continuity of Care Document ---
Author Name Unknown Organization [facility] Adult Address [address] [place] [address]- Care Team Providers Care Information Security Architect Name Role Phone Jonathan Crowell NP Primary Care Physician Encounter [facility] Date(s): 05/22/22 - 06/21/[address] [facility] [address] [place] [address]- Allergies, Adverse Reactions, Alerts No Known Allergies [...] 06/13/22 10:32:00 EDT, Route to Pharmacy Electronically, [facility] #[id number], 175.2, cm, 06/13/22 10:31:00 EDT, Height, 129, kg, 11/18/21 10:28:00 EST, Dry... Start Date: 06/13/22 Status: Ordered atorvastatin 10 mg oral tablet 1 tablet = 10 mg, By Mouth, Daily, # 90 tablet, 1 Refills, Maintenance, 05/20/22 11:37:00 EDT, [facility] #[id number], 175.2, cm, 02/18/22 14:17:00 EDT, Height, 129, kg, 11/18/21 10:28:00 EST, Dry Weight Start Date: 05/20/22 Status: Ordered benazepril 40 mg oral tablet 1 tablet = 40 mg, By Mouth, Daily, # 90 tablet, 3 Refills, Maintenance, 10/09/21 10:38:00 EST, Tablet, [facility] #[id number], Partial fill upon patient request if the prescription is for a schedule II opioid drug. Dose increase, 175.2, cm, 10/09... Start Date: 10/09/21 Status: Ordered benazepril-hydrochlorothiazide 20 mg-12.5 mg oral tablet 1 tablet, By Mouth, Daily, # 90 tablet, 1 Refills, Maintenance, 06/13/22 10:34:00 EDT, Tablet, [facility] #[id number], Partial fill upon patient request if the prescription is for a schedule II opioid drug., 1 tablet By Mouth Daily, 175.2, cm, 09... Start Date: 06/13/22 Status: Ordered dapagliflozin 10 mg oral tablet 1 tablet = 10 mg, By Mouth, Daily, # 90 tablet, 2 Refills, Maintenance, 06/13/22 10:38:00 EDT, Tablet, [facility] #[id number], Partial fill upon patient request if the prescription is for a schedule II opioid drug., 175.2, cm, 06/13/22 10:31:00 E... Start Date: 06/13/22 Status: Ordered Eucerin Plus topical lotion 1 application, Topically, 2 times a day, PRN for dry skin, Please apply 10 times per day to affected area., # 354 mL, 2 Refills, Maintenance, 02/18/22 15:05:00 EDT, Lotion, [facility] #[id number], Partial fill upon patient request if the [...] Refills, Maintenance, 04/14/22 10:56:00 EDT, ER Tablet, [facility] #[id number], 175.2, cm, 02/18/22 14:17:00 EDT, Height, 129, kg, 11/18/21 10:28:00 EST, Dry Weight Start Date: 04/14/22 Stop Date: 10/11/22 Status: Ordered metFORMIN 1000 mg oral tablet 1 tablet = 1,000 mg, By Mouth, 2 times a day, with meals, # 180 tablet, 1 Refills, Maintenance, 05/20/22 13:32:00 EDT, Tablet, [facility] #[id number], 175.2, cm, 02/18/22 14:17:00 EDT, Height, 129, [...] Name: Jonathan Crowell NP Address: Address: [address]rd [address] [place], [place] [address]
--- OUTSIDE RECORDS SUMMARY | 2023-01-03 00:59 | XMS_ITS | Continuity of Care Document ---
Author Name Unknown Organization [facility] Adult Address [address] [place] [address]- Care Team Providers Care Deicer Tester Name Role Phone Jonathan Crowell NP Primary Care Physician [place] [facility] [place] 06[place]22 [facility] Adult [address] [place] [address]- Allergies, Adverse Reactions, Alerts No Known Allergies [...] 06/13/22 10:32:00 EDT, Route to Pharmacy Electronically, [facility] #[id number], 175.2, cm, 06/13/22 10:31:00 EDT, Height, 129, kg, 11/18/21 10:28:00 EST, Dry... Start Date: 06/13/22 Status: Ordered atorvastatin 10 mg oral tablet 1 tablet = 10 mg, By Mouth, Daily, # 90 tablet, 1 Refills, Maintenance, 05/20/22 11:37:00 EDT, [facility] #[id number], 175.2, cm, 02/18/22 14:17:00 EDT, Height, 129, kg, 11/18/21 10:28:00 EST, Dry Weight Start Date: 05/20/22 Status: Ordered benazepril 40 mg oral tablet 1 tablet = 40 mg, By Mouth, Daily, # 90 tablet, 3 Refills, Maintenance, 10/09/21 10:38:00 EST, Tablet, [facility] #[id number], Partial fill upon patient request if the prescription is for a schedule II opioid drug. Dose increase, 175.2, cm, 10/09... Start Date: 10/09/21 Status: Ordered benazepril-hydrochlorothiazide 20 mg-12.5 mg oral tablet 1 tablet, By Mouth, Daily, # 90 tablet, 1 Refills, Maintenance, 06/13/22 10:34:00 EDT, Tablet, [facility] #[id number], Partial fill upon patient request if the prescription is for a schedule II opioid drug., 1 tablet By Mouth Daily, 175.2, cm, 09... Start Date: 06/13/22 Status: Ordered dapagliflozin 10 mg oral tablet 1 tablet = 10 mg, By Mouth, Daily, # 90 tablet, 2 Refills, Maintenance, 06/13/22 10:38:00 EDT, Tablet, [facility] #[id number], Partial fill upon patient request if the prescription is for a schedule II opioid drug., 175.2, cm, 06/13/22 10:31:00 E... Start Date: 06/13/22 Status: Ordered Eucerin Plus topical lotion 1 application, Topically, 2 times a day, PRN for dry skin, Please apply 10 times per day to affected area., # 354 mL, 2 Refills, Maintenance, 02/18/22 15:05:00 EDT, Lotion, [facility] #[id number], Partial fill upon patient request if the [...] Refills, Maintenance, 04/14/22 10:56:00 EDT, ER Tablet, [facility] #[id number], 175.2, cm, 02/18/22 14:17:00 EDT, Height, 129, kg, 11/18/21 10:28:00 EST, Dry Weight Start Date: 04/14/22 Stop Date: 10/11/22 Status: Ordered metFORMIN 1000 mg oral tablet 1 tablet = 1,000 mg, By Mouth, 2 times a day, with meals, # 180 tablet, 1 Refills, Maintenance, 05/20/22 13:32:00 EDT, Tablet, [facility] #[id number], 175.2, cm, 02/18/22 14:17:00 EDT, Height, 129, [...] Name: Jonathan Crowell NP Address: Address: [address]rd floor [place], [place] [address]
--- OUTSIDE RECORDS SUMMARY | 2023-01-03 00:59 | XMS_ITS | Continuity of Care Document ---
Author Name Unknown Organization [facility] Adult Address [address] [place] [address]- Care Team Providers Care Skein Yard Drier Name Role Phone Socrates LOCKER ROOM CLERK, Jonathan Breaux Primary Care Physician [place] [facility] [place]): [place]/07/22 - 07/14/22 [facility] Adult [address] [place] [phone]- Encounter Diagnosis HTN (hypertension)(Discharge Diagnosis) - 07/07/22 Attending Physician: Not on Staff, Attending MD Allergies, Adverse Reactions, Alerts No Known Allergies Immunizations Given and Recorded Vaccine Date Status Refusal Reason influenza virus vaccine, inactivated 07/07/22 Give n [...] 07/04/22 9:54:00 EDT, Route to Pharmacy Electronically, [facility] #[id number], 175.2, cm, 07/04/22 9:42:00 EDT, Height, 129, kg, 11/18/21 10:28:00 EST, Dry W... Start Date: 07/04/22 Status: Ordered atorvastatin 10 mg oral tablet 1 tablet = 10 mg, By Mouth, Daily, # 90 tablet, 1 Refills, Maintenance, 05/20/22 11:37:00 EDT, [facility] #[id number], 175.2, cm, 02/18/22 14:17:00 EDT, Height, 129, kg, 11/18/21 10:28:00 EST, Dry Weight Start Date: 05/20/22 Status: Ordered benazepril-hydrochlorothiazide 20 mg-12.5 mg oral tablet 1 tablet, By Mouth, Daily, # 90 tablet, 1 Refills, Maintenance, 07/04/22 9:54:00 EDT, Tablet, [facility] #[id number], Partial fill upon patient request if the prescription is for a schedule II opioid drug., 1 tablet By Mouth Daily, 175.2, cm, ... Start Date: 07/04/22 Status: Ordered dapagliflozin 10 mg oral tablet 1 tablet = 10 mg, By Mouth, Daily, # 90 tablet, 2 Refills, Maintenance, 06/13/22 10:38:00 EDT, Tablet, [facility] #[id number], Partial fill upon patient request if the prescription is for a schedule II opioid drug., 175.2, cm, 06/13/22 10:31:00 E... Start Date: 06/13/22 Status: Ordered Eucerin Plus topical lotion 1 application, Topically, 2 times a day, PRN for dry skin, Please apply 10 times per day to affected area., # 354 mL, 2 Refills, Maintenance, 02/18/22 15:05:00 EDT, Lotion, [facility] #[id number], Partial fill upon patient request if the [...] Refills, Maintenance, 04/14/22 10:56:00 EDT, ER Tablet, [facility] #[id number], 175.2, cm, 02/18/22 14:17:00 EDT, Height, 129, kg, 11/18/21 10:28:00 EST, Dry Weight Start Date: 04/14/22 Stop Date: 10/11/22 Status: Ordered metFORMIN 1000 mg oral tablet 1 tablet = 1,000 mg, By Mouth, 2 times a day, with meals, # 180 tablet, 1 Refills, Maintenance, 05/20/22 13:32:00 EDT, Tablet, [facility] #[id number], 175.2, cm, 02/18/22 14:17:00 EDT, Height, 129, [...] inical Service Informant HTN (hypertension) Discharge Diagnosis 07/07/22 Vital Signs Most recent to oldest [Reference Range]: 1 2 3 Height 175.2 cm (07/07/22 9:47 AM) 175.2 cm (07/07/22 9:34 AM) 175.2 cm (07/07/22 9:18 AM) Weight 131.8 kg (07/07/22 9:18 AM) Oxygen Saturation [94-100 %] 98 % (07/07/22 9:18 AM) Pulse Rate [55-90 bpm] 66 bpm (07/07/22 9:18 AM) Body Mass Index [18.5-24.99 kg/m2] 42.94 kg/m2 *>HHI* (07/07/22 9:18 AM) Blood Pressure [90-138/55-84 mm Hg] 138/84mm Hg (07/07/22 9:47 AM) 148/92mm Hg *H* (07/07/22 9:34 AM) 147/89mm Hg *H* (07/07/22 9:18 AM) Mode of Delivery (Oxygen) Room air (07/07/22 9:18 AM) Blood pressure sites Arm, left (07/07/22 9:47 AM) Arm, right (07/07/22 9:34 AM) Arm, right (07/07/22 9:18 AM) Weight Obtained Via Standing scale (07/07/22 9:18 AM) Social History Social History Type Response Smoking Status Never smoker entered on: 03/03/18 Sex Patient Care team information Personnel Name: Jonathan Crowell NP Address: Address: [address]rd [address] [place], [place] [address]
--- OUTSIDE RECORDS SUMMARY | 2023-01-03 00:59 | XMS_ITS | Continuity of Care Document ---
Author Name Unknown Organization [facility] Address [address] [place] [address]- Care Team Providers Care Motor Express Clerk Name Role Phone Socrates ECHOCARDIOGRAPHER, Jonathan Breaux Primary Care Physician Encounter [facility] Date(s): 02/11/22 - 07/24/[address] [address] Attending Physician: Kimi Dominguez MD Admitting Physician: Kimi Dominguez MD Referring Physician: Not on Staff, Referring MD Allergies, Adverse Reactions, Alerts No Known [...] 07/04/22 9:54:00 EDT, Route to Pharmacy Electronically, [facility] #[id number], 175.2, cm, 07/04/22 9:42:00 EDT, Height, 129, kg, 11/18/21 10:28:00 EST, Dry W... Start Date: 07/04/22 Status: Ordered atorvastatin 10 mg oral tablet 1 tablet = 10 mg, By Mouth, Daily, # 90 tablet, 1 Refills, Maintenance, 05/20/22 11:37:00 EDT, [facility] #[id number], 175.2, cm, 02/18/22 14:17:00 EDT, Height, 129, kg, 11/18/21 10:28:00 EST, Dry Weight Start Date: 05/20/22 Status: Ordered benazepril-hydrochlorothiazide 20 mg-12.5 mg oral tablet 1 tablet, By Mouth, Daily, # 90 tablet, 1 Refills, Maintenance, 07/04/22 9:54:00 EDT, Tablet, [facility] #[id number], Partial fill upon patient request if the prescription is for a schedule II opioid drug., 1 tablet By Mouth Daily, 175.2, cm, ... Start Date: 07/04/22 Status: Ordered dapagliflozin 10 mg oral tablet 1 tablet = 10 mg, By Mouth, Daily, # 90 tablet, 2 Refills, Maintenance, 06/13/22 10:38:00 EDT, Tablet, [facility] #[id number], Partial fill upon patient request if the prescription is for a schedule II opioid drug., 175.2, cm, 06/13/22 10:31:00 E... Start Date: 06/13/22 Status: Ordered Eucerin Plus topical lotion 1 application, Topically, 2 times a day, PRN for dry skin, Please apply 10 times per day to affected area., # 354 mL, 2 Refills, Maintenance, 02/18/22 15:05:00 EDT, Lotion, [facility] #[id number], Partial fill upon patient request if the [...] Refills, Maintenance, 04/14/22 10:56:00 EDT, ER Tablet, [facility] #[id number], 175.2, cm, 02/18/22 14:17:00 EDT, Height, 129, kg, 11/18/21 10:28:00 EST, Dry Weight Start Date: 04/14/22 Stop Date: 10/11/22 Status: Ordered metFORMIN 1000 mg oral tablet 1 tablet = 1,000 mg, By Mouth, 2 times a day, with meals, # 180 tablet, 1 Refills, Maintenance, 05/20/22 13:32:00 EDT, Tablet, [facility] #[id number], 175.2, cm, 02/18/22 14:17:00 EDT, Height, 129, [...] Personnel Name: Jonathan Crowell NP Address: Address: [address] [place] [address] [address] [place], [place] [address]
--- OUTSIDE RECORDS SUMMARY | 2023-01-03 00:59 | XMS_ITS | Continuity of Care Document ---
Author Name Unknown Organization [facility] Adult Address [address] [place] [address]- Care Team Providers Care Machine Load Clerk Name Role Phone Socrates VISUAL C DEVELOPER, Jonathan Breaux Primary Care Physician En[place] [facility] [place](s): 11/14/21 - 03/01/22 [facility] Adult [address] [place] [address]- Attending Physician: Not on Staff, Attending MD [...] 09/26/21 13:46:00 EST, Route to Pharmacy Electronically, [facility] #[id number], 175.2, cm, 09/05/21 9:45:00 EST, Height Start Date: 09/26/21 Status: Ordered atorvastatin 10 mg oral tablet 1 tablet = 10 mg, By Mouth, Daily, # 90 tablet, 1 Refills, Maintenance, 09/26/21 13:22:00 EST, [facility] #[id number], 175.2, cm, 09/05/21 9:45:00 EST, Height Start Date: 09/26/21 Status: Ordered benazepril 40 mg oral tablet 1 tablet = 40 mg, By Mouth, Daily, # 90 tablet, 3 Refills, Maintenance, 10/09/21 10:38:00 EST, Tablet, [facility] #[id number], Partial fill upon patient request if the prescription is for a schedule II opioid drug. Dose increase, 175.2, cm, 10/09... Start Date: 10/09/21 Status: Ordered Eucerin Plus topical lotion 1 application, Topically, 2 times a day, PRN for dry skin, Please apply 10 times per day to affected area., # 354 mL, 2 Refills, Maintenance, 02/18/22 15:05:00 EDT, Lotion, [facility] #[id number], Partial fill upon patient request if the prescrip... Start Date: 02/18/22 Status: Ordered Farxiga 5 mg oral tablet 1 tablet, By Mouth, Daily, # 90 tablet, 0 Refills, 10/17/21 11:02:00 EST, [facility] #[id number], 175.2, cm, 10/09/21 10:42:00 EST, Height Start [...] Refills, Maintenance, 12/01/21 13:22:00 EDT, ER Tablet, [facility] #[id number], 175.2, cm, 10/09/21 10:42:00 EST, Height Start Date: 12/01/21 Stop Date: 05/30/22 Status: Ordered metFORMIN 1000 mg oral tablet 1 tablet = 1,000 mg, By Mouth, 2 times a day, with meals, # 180 tablet, 2 Refills, Maintenance, 12/03/21 15:55:00 EDT, Tablet, [facility] #[id number], 175.2, cm, 09/05/21 9:45:00 EST, Height Start [...]
--- OUTSIDE RECORDS SUMMARY | 2023-01-03 00:59 | XMS_ITS | Continuity of Care Document ---
Author Name Unknown Organization [facility] Adult Address [address] [place] [address]- Care Team Providers Care Quill Picking Machine Operator Name Role Phone Jonathan Crowell NP Primary Care Physician [phone] [place] [facility] [place] 05/20/22 - 06/19/22 [facility] Adult [address] [place] [address]- Allergies, Adverse Reactions, Alerts No Known Allergies [...] 06/13/22 10:32:00 EDT, Route to Pharmacy Electronically, [facility] #[id number], 175.2, cm, 06/13/22 10:31:00 EDT, Height, 129, kg, 11/18/21 10:28:00 EST, Dry... Start Date: 06/13/22 Status: Ordered atorvastatin 10 mg oral tablet 1 tablet = 10 mg, By Mouth, Daily, # 90 tablet, 1 Refills, Maintenance, 05/20/22 11:37:00 EDT, [facility] #[id number], 175.2, cm, 02/18/22 14:17:00 EDT, Height, 129, kg, 11/18/21 10:28:00 EST, Dry Weight Start Date: 05/20/22 Status: Ordered benazepril 40 mg oral tablet 1 tablet = 40 mg, By Mouth, Daily, # 90 tablet, 3 Refills, Maintenance, 10/09/21 10:38:00 EST, Tablet, [email or web address] #[id number], Partial fill upon patient request if the prescription is for a schedule II opioid drug. Dose increase, 175.2, cm, 10/09... Start Date: 10/09/21 Status: Ordered benazepril-hydrochlorothiazide 20 mg-12.5 mg oral tablet 1 tablet, By Mouth, Daily, # 90 tablet, 1 Refills, Maintenance, 06/13/22 10:34:00 EDT, Tablet, [facility] #[id number], Partial fill upon patient request if the prescription is for a schedule II opioid drug., 1 tablet By Mouth Daily, 175.2, cm, 09... Start Date: 06/13/22 Status: Ordered dapagliflozin 10 mg oral tablet 1 tablet = 10 mg, By Mouth, Daily, # 90 tablet, 2 Refills, Maintenance, 06/13/22 10:38:00 EDT, Tablet, [facility] #[id number], Partial fill upon patient request if the prescription is for a schedule II opioid drug., 175.2, cm, 06/13/22 10:31:00 E... Start Date: 06/13/22 Status: Ordered Eucerin Plus topical lotion 1 application, Topically, 2 times a day, PRN for dry skin, Please apply 10 times per day to affected area., # 354 mL, 2 Refills, Maintenance, 02/18/22 15:05:00 EDT, Lotion, [facility] #[id number], Partial fill upon patient request if the [...] Refills, Maintenance, 04/14/22 10:56:00 EDT, ER Tablet, [facility] #[id number], 175.2, cm, 02/18/22 14:17:00 EDT, Height, 129, kg, 11/18/21 10:28:00 EST, Dry Weight Start Date: 04/14/22 Stop Date: 10/11/22 Status: Ordered metFORMIN 1000 mg oral tablet 1 tablet = 1,000 mg, By Mouth, 2 times a day, with meals, # 180 tablet, 1 Refills, Maintenance, 05/20/22 13:32:00 EDT, Tablet, [facility] #[id number], 175.2, cm, 02/18/22 14:17:00 EDT, Height, 129, [...] Address: Address: [address] [place], [place] [address]
--- OUTSIDE RECORDS SUMMARY | 2023-01-03 00:59 | XMS_ITS | Continuity of Care Document ---
Author Name Unknown Organization [facility] Adult Address [address] [place] [address]- Care Team Providers Care Retail And Restaurant Associate Name Role Phone Socrates KEMP, Jonathan Breaux Primary Care Physician Encounter [facility] [place] Date(s): 02/14/20 - 02/21/20 [facility] Adult [address] [place] [address]- [facility] Attending Physician: Not on Staff, Attending MD Allergies, Adverse Reactions, Alerts Substance Reaction Severity Status NKA Active Immunizations Given and Recorded Vaccine Date Status Refusal Reason influenza virus vaccine, inactivated 07/18/19 Give n pneumococcal 23-valent vaccine 03/03/18 Given Medications amLODIPine 10 mg oral tablet 10 mg, 1, tablet, By Mouth, Daily, # 90 tablet, Refills 1, Tot. Refills 1, Maintenance, 07/18/19 13:55:22 EDT, Route to Pharmacy Electronically, [id number], [facility] #[id number] Start Date: 07/18/19 Status: Ordered atorvastatin 10 mg oral tablet 1 tablet = 10 mg, By Mouth, Daily, # 90 tablet, 3 Refills, Maintenance, 11/24/19 9:49:00 EST, [facility] #[id number], 175.2, cm, 11/24/19 9:25:00 EST, Height Start Date: 11/24/19 Stop Date: 06/21/20 Status: Ordered benazepril 10 mg oral tablet 1 tablet = 10 mg, By Mouth, Daily, # 90 tablet, 2 Refills, Maintenance, 11/24/19 9:49:00 EST, Tablet, [facility] #[id number], 175.2, cm, 11/24/19 9:25:00 EST, Height Start Date: 11/24/19 Stop Date: 01/23/20 Status: Ordered Freestyle Lite Lancets See Instructions, [...] Refills, Maintenance, 11/24/19 9:51:00 EST, ER Tablet, [facility] #[id number], 175.2, cm, 11/24/19 9:25:00 EST, Height Start Date: 11/24/19 Stop Date: 08/20/20 Status: Ordered metFORMIN 1000 mg oral tablet 1 tablet = 1,000 mg, By Mouth, 2 times a day, with meals, # 180 tablet, 2 Refills, Maintenance, 07/18/19 12:21:11 EDT, Tablet Start Date: 07/18/19 Status: Ordered naproxen 500 mg oral tablet 1 tablet = 500 mg, By Mouth, 2 times a day, PRN Pain , Moderate, for 14 days, with food, # 28 tablet, 0 Refills, Acute 02/28/20 15:51:00 EDT, 02/14/20 15:51:00 EDT, Tablet, [facility] #[id number], 175.2, cm, 11/24/19 9:25:00 EST, Height Start Date: 02/14/20 Stop Date: 02/28/20 Status: Ordered Problem List Condition Effective Dates [...]
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
--- OUTSIDE RECORDS SUMMARY | 2023-01-03 00:59 | XMS_ITS | Continuity of Care Document ---
Author Name Unknown Organization [facility] Adult Address [address] [place] [address]- Care Team Providers Care Reimbursement Liaison Name Role Phone Jonathan Crowell NP Primary Care Physician [phone] Encounter [facility] Date(s): 10/10/20 - 11/09/20 [facility] Adult [address], [place] [address] Attending Physician: Admkathleen, Lizbet Admitting Physician: Admtr, Lizbet Referring Physician: Admtr, Ar8 Allergies, Adverse Reactions, Alerts Substance Reaction Severity Status NKA Active Immunizations Given and Recorded Vaccine Date Status Refusal Reason Influenza Virus Vaccine (oldterm) 07/09/20 Recorde d influenza virus vaccine, inactivated 07/18/19 Give n pneumococcal 23-valent vaccine 03/03/18 Given Medications amLODIPine 10 mg oral tablet 10 mg, 1, tablet, By Mouth, Daily, # 90 tablet, Refills 3, Tot. Refills 3, Maintenance, 09/07/20 13:34:00 EST, Route to Pharmacy Electronically, [facility] #[id number], 175.2, cm, 09/07/20 12:25:00 EST, Height Start Date: 09/07/20 Status: Ordered atorvastatin 10 mg oral tablet 1 tablet = 10 mg, By Mouth, Daily, # 90 tablet, 3 Refills, Maintenance, 09/07/20 13:34:00 EST, [facility] #[id number], 175.2, cm, 09/07/20 12:25:00 EST, Height Start Date: 09/07/20 Status: Ordered benazepril 20 mg oral tablet 1 tablet = 20 mg, By Mouth, Daily, # 90 tablet, 3 Refills, Maintenance, 09/07/20 13:35:00 EST, Tablet, [facility] #[id number], 175.2, cm, 09/07/20 12:25:00 EST, Height Start Date: 09/07/20 Status: Ordered Farxiga 5 mg oral tablet 1 tablet = 5 mg, By Mouth, Daily, # 90 tablet, 1 Refills, Maintenance, 09/07/20 13:22:00 EST, Tablet, [facility] #[id number], Partial fill upon patient request if the prescription is for a schedule II opioid drug., 175.2, cm, 09/07/20 12:25:00 ES... Start Date: 09/07/20 Status: Ordered Freestyle Lite Lancets See Instructions, [...] Refills, Maintenance, 09/07/20 13:22:00 EST, ER Tablet, [facility] #[id number], 175.2, cm, 09/07/20 12:25:00 EST, Height Start Date: 09/07/20 Stop Date: 12/01/21 Status: Ordered metFORMIN 1000 mg oral tablet 1 tablet = 1,000 mg, By Mouth, 2 times a day, with meals, # 180 tablet, 2 Refills, Maintenance, 07/18/19 12:21:11 EDT, Tablet Start Date: 07/18/19 Status: Ordered terbinafine 250 mg oral tablet 1 tablet = 250 mg, By Mouth, Daily, for 12 week(s), # 84 tablet, 0 Refills, Acute 11/30/20 13:33:00EST, 09/07/20 13:33:00 EST, Tablet, [id number], Partial fill upon patient request if the prescription is for a schedule II opioid drug... Start Date: 09/07/20 Stop Date: 11/30/20 Status: Ordered Problem List Condition Effective Dates [...]
--- OUTSIDE RECORDS SUMMARY | 2023-01-03 00:59 | XMS_ITS | Continuity of Care Document ---
Author Name Unknown Organization [facility] Adult Address [address] [place] [address]- Care Team Providers Care Director Of Reservations Name Role Phone Socrates MALT HOUSE LOADER, Jonathan Breaux Primary Care Physician [phone] Encounter [facility] [place] Date(s): 12/11/21 - 12/18/21 [facility] Adult [address] [place] [address]- Encounter Diagnosis Left leg cellulitis(Discharge Diagnosis) - 12/11/21 Attending Physician: Lissa Emanuel MD Allergies, Adverse Reactions, Alerts No Known [...] 09/26/21 13:46:00 EST, Route to Pharmacy Electronically, [facility] #[id number], 175.2, cm, 09/05/21 9:45:00 EST, Height Start Date: 09/26/21 Status: Ordered atorvastatin 10 mg oral tablet 1 tablet = 10 mg, By Mouth, Daily, # 90 tablet, 1 Refills, Maintenance, 09/26/21 13:22:00 EST, [facility] #[id number], 175.2, cm, 09/05/21 9:45:00 EST, Height Start Date: 09/26/21 Status: Ordered benazepril 40 mg oral tablet 1 tablet = 40 mg, By Mouth, Daily, # 90 tablet, 3 Refills, Maintenance, 10/09/21 10:38:00 EST, Tablet, [facility] #54397, Partial fill upon patient request if the prescription is for a schedule II opioid drug. Dose increase, 175.2, cm, 10/09... Start Date: 10/09/21 Status: Ordered cephalexin monohydrate 500 mg oral capsule 1 capsule = 500 mg, By Mouth, 4 times a day, for 10 days, # 40 capsule, 0 Refills, Acute 12/21/21 17:08:00 EDT, 12/11/21 17:08:00 EDT, Capsule, [facility] #[id number], Partial fill upon patient request if the prescription is for a schedule II opi... Start Date: 12/11/21 Stop Date: 12/21/21 Status: Ordered Ecotrin 325 mg oral delayed [...] 90 tablet, 0 Refills, 10/17/21 11:02:00 EST, [facility] #[id number], 175.2, cm, 10/09/21 10:42:00 EST, Height Start [...] Refills, Maintenance, 12/01/21 13:22:00 EDT, ER Tablet, [email or web address] #[id number], 175.2, cm, 10/09/21 10:42:00 EST, Height Start Date: 12/01/21 Stop Date: 05/30/22 Status: Ordered metFORMIN 1000 mg oral tablet 1 tablet = 1,000 mg, By Mouth, 2 times a day, with meals, # 180 tablet, 2 Refills, Maintenance, 12/03/21 15:55:00 EDT, Tablet, [facility] #[id number], 175.2, cm, 09/05/21 9:45:00 EST, Height Start [...] Dates Health Status Clinical Service Informant Left leg cellulitis Discharge Diagnosis 12/11/21 Vital Signs Most recent to oldest [Reference Range]: 1 Height 175.2 cm (12/11/21 4:11 PM) Social History Social History Type Response Smoking Status Never smoker entered on: 03/03/18 Sex
--- OUTSIDE RECORDS SUMMARY | 2023-01-03 00:59 | XMS_ITS | Continuity of Care Document ---
Author Name Unknown Organization [facility] Address Unknown Care Team Providers Care Luster Applicator Name Role Phone Jonathan Crowell NP Primary Care Physician [place] [facility] 02/07/22 - 03/09/22 [facility] Allergies, Adverse Reactions, Alerts No Known Allergies [...] 09/26/21 13:46:00 EST, Route to Pharmacy Electronically, [facility] #[id number], 175.2, cm, 09/05/21 9:45:00 EST, Height Start Date: 09/26/21 Status: Ordered atorvastatin 10 mg oral tablet 1 tablet = 10 mg, By Mouth, Daily, # 90 tablet, 1 Refills, Maintenance, 09/26/21 13:22:00 EST, [facility] #[id number], 175.2, cm, 09/05/21 9:45:00 EST, Height Start Date: 09/26/21 Status: Ordered benazepril 40 mg oral tablet 1 tablet = 40 mg, By Mouth, Daily, # 90 tablet, 3 Refills, Maintenance, 10/09/21 10:38:00 EST, Tablet, [facility] #[id number], Partial fill upon patient request if the prescription is for a schedule II opioid drug. Dose increase, 175.2, cm, 10/09... Start Date: 10/09/21 Status: Ordered Eucerin Plus topical lotion 1 application, Topically, 2 times a day, PRN for dry skin, Please apply 10 times per day to affected area., # 354 mL, 2 Refills, Maintenance, 02/18/22 15:05:00 EDT, Lotion, [facility] #[id number], Partial fill upon patient request if the prescrip... Start Date: 02/18/22 Status: Ordered Farxiga 5 mg oral tablet 1 tablet, By Mouth, Daily, # 90 tablet, 0 Refills, 10/17/21 11:02:00 EST, [facility] #[id number], 175.2, cm, 10/09/21 10:42:00 EST, Height Start [...] Refills, Maintenance, 12/01/21 13:22:00 EDT, ER Tablet, [facility] #[id number], 175.2, cm, 10/09/21 10:42:00 EST, Height Start Date: 12/01/21 Stop Date: 05/30/22 Status: Ordered metFORMIN 1000 mg oral tablet 1 tablet = 1,000 mg, By Mouth, 2 times a day, with meals, # 180 tablet, 2 Refills, Maintenance, 12/03/21 15:55:00 EDT, Tablet, [facility] #[id number], 175.2, cm, 09/05/21 9:45:00 EST, Height Start [...]
--- OUTSIDE RECORDS SUMMARY | 2023-01-03 00:59 | XMS_ITS | Continuity of Care Document ---
Author Name Unknown Organization [facility] Adult Address [address] [place] [address]- Care Team Providers Care Homicide Squad Captain Name Role Phone Jonathan Crowell NP Primary Care Physician [phone] Encounter [facility] [place] Date(s): 07/07/22 - 10/12/22 [facility] Adult [address] [place] [address]- Attending Physician: Not on Staff, Attending MD Allergies, Adverse Reactions, Alerts No Known Allergies Immunizations Given and Recorded Vaccine Date Status Refusal Reason tetanus/diphtheria/pertussis, acel(Tdap) 08/26/22 Recorded [id number] 12y+ bivalent booster vax 08/04/22 Recorded influenza [...] 07/04/22 9:54:00 EDT, Route to Pharmacy Electronically, [facility] #[id number], 175.2, cm, 07/04/22 9:42:00 EDT, Height, 129, kg, 11/18/21 10:28:00 EST, Dry W... Start Date: 07/04/22 Status: Ordered atorvastatin 10 mg oral tablet 1 tablet = 10 mg, By Mouth, Daily, # 90 tablet, 1 Refills, Maintenance, 05/20/22 11:37:00 EDT, [facility] #[id number], 175.2, cm, 02/18/22 14:17:00 EDT, Height, 129, kg, 11/18/21 10:28:00 EST, Dry Weight Start Date: 05/20/22 Status: Ordered benazepril-hydrochlorothiazide 20 mg-12.5 mg oral tablet 1 tablet, By Mouth, Daily, # 90 tablet, 1 Refills, Maintenance, 07/04/22 9:54:00 EDT, Tablet, [facility] #[id number], Partial fill upon patient request if the prescription is for a schedule II opioid drug., 1 tablet By Mouth Daily, 175.2, cm, ... Start Date: 07/04/22 Status: Ordered dapagliflozin 10 mg oral tablet 1 tablet = 10 mg, By Mouth, Daily, # 90 tablet, 2 Refills, Maintenance, 06/13/22 10:38:00 EDT, Tablet, [facility] #[id number], Partial fill upon patient request if the prescription is for a schedule II opioid drug., 175.2, cm, 06/13/22 10:31:00 E... Start Date: 06/13/22 Status: Ordered Eucerin Plus topical lotion 1 application, Topically, 2 times a day, PRN for dry skin, Please apply 10 times per day to affected area., # 354 mL, 2 Refills, Maintenance, 02/18/22 15:05:00 EDT, Lotion, [facility] #[id number], Partial fill upon patient request if the [...] Refills, Maintenance, 04/14/22 10:56:00 EDT, ER Tablet, [facility] #[id number], 175.2, cm, 02/18/22 14:17:00 EDT, Height, 129, kg, 11/18/21 10:28:00 EST, Dry Weight Start Date: 04/14/22 Stop Date: 10/11/22 Status: Ordered metFORMIN 1000 mg oral tablet 1 tablet = 1,000 mg, By Mouth, 2 times a day, with meals, # 180 tablet, 1 Refills, Maintenance, 05/20/22 13:32:00 EDT, Tablet, [facility] #04897, 175.2, cm, 02/18/22 14:17:00 EDT, Height, 129, [...] on: 03/03/18 Sex Patient Care team information Care Team Personnel Name: Jonathan Crowell NP Position: S PCO Associate Professional Member Role: PCP Address: Address: [address] [place] [address] [address] [place] [address]- Care Team Related Persons Name: ERIN DUFF Address: home [address] [place] [address] Name: NILESH SCHNEIDER Address: home [address] [place] [address] Name: NILESH POOL Address: home [address] [place] [address]
--- OUTSIDE RECORDS SUMMARY | 2023-01-03 01:00 | XMS_ITS | Continuity of Care Document ---
Author Name Unknown Organization [facility] Adult Address [address] [place] [address]- Care Team Providers Care Grade Checker Name Role Phone Socrates KEMP, Jonathan Breaux Primary Care Physician En[place] [facility] [place] Date(s): 08/28/21 - 09/27/21 [facility] Adult [address] [place] [id number] Allergies, Adverse Reactions, Alerts Substance [...] 09/26/21 13:46:00 EST, Route to Pharmacy Electronically, [facility] #[id number], 175.2, cm, 09/05/21 9:45:00 EST, Height Start Date: 09/26/21 Status: Ordered atorvastatin 10 mg oral tablet 1 tablet = 10 mg, By Mouth, Daily, # 90 tablet, 1 Refills, Maintenance, 09/26/21 13:22:00 EST, [facility] #[id number], 175.2, cm, 09/05/21 9:45:00 EST, Height Start Date: 09/26/21 Status: Ordered benazepril 20 mg oral tablet 1 tablet = 20 mg, By Mouth, Daily, # 90 tablet, 1 Refills, Maintenance, 09/11/21 13:36:00 EST, Tablet, [facility] #[id number], 175.2, cm, 09/05/21 9:45:00 EST, Height Start Date: 09/11/21 Status: Ordered Farxiga 5 mg oral tablet 1 tablet, By Mouth, Daily, # 90 tablet, 0 Refills, 09/26/21 13:22:00 EST, [facility] #[id number], 175.2, cm, 09/05/21 9:45:00 EST, Height Start [...] Refills, Maintenance, 09/07/20 13:22:00 EST, ER Tablet, [facility] #[id number], 175.2, cm, 09/07/20 12:25:00 EST, Height Start Date: 09/07/20 Stop Date: 12/01/21 Status: Ordered metFORMIN 1000 mg oral tablet 1 tablet = 1,000 mg, By Mouth, 2 times a day, with meals, # 180 tablet, 2 Refills, Maintenance, 12/03/21 15:55:00 EDT, Tablet, [facility] #[id number], 175.2, cm, 09/05/21 9:45:00 EST, Height Start Date: 12/03/21 Stop Date: 08/30/22 Status: Ordered metFORMIN 1000 mg oral tablet 1 tablet = 1,000 mg, By Mouth, 2 times a day, for 90 days, with meals, # 180 tablet, 0 Refills, Hard Stop 12/03/21 15:55:00 EDT, 09/04/21 15:55:00 EST, Tablet, [facility] #[id number], 175.2, cm,06/14/21 8:20:00 EDT, Height Start Date: [...]
--- OUTSIDE RECORDS SUMMARY | 2023-01-03 01:00 | XMS_ITS | Continuity of Care Document ---
Author Name Unknown Organization [facility] Adult Address [address] [place] [address]- Care Team Providers Care Loss Prevention Specialist Name Role Phone Socrates KEMP, Jonathan Breaux Primary Care Physician Encounter [facility] [place] Date(s): 09/04/21 - 10/04/21 [facility] Adult [address] [place] [id number] Allergies, Adverse Reactions, Alerts No Known [...] 09/26/21 13:46:00 EST, Route to Pharmacy Electronically, [facility] #[id number], 175.2, cm, 09/05/21 9:45:00 EST, Height Start Date: 09/26/21 Status: Ordered atorvastatin 10 mg oral tablet 1 tablet = 10 mg, By Mouth, Daily, # 90 tablet, 1 Refills, Maintenance, 09/26/21 13:22:00 EST, [facility] #[id number], 175.2, cm, 09/05/21 9:45:00 EST, Height Start Date: 09/26/21 Status: Ordered benazepril 20 mg oral tablet 1 tablet = 20 mg, By Mouth, Daily, # 90 tablet, 1 Refills, Maintenance, 09/11/21 13:36:00 EST, Tablet, [facility] #59403, 175.2, cm, 09/05/21 9:45:00 EST, Height Start Date: 09/11/21 Status: Ordered Farxiga 5 mg oral tablet 1 tablet, By Mouth, Daily, # 90 tablet, 0 Refills, 09/26/21 13:22:00 EST, [facility] #[id number], 175.2, cm, 09/05/21 9:45:00 EST, Height Start [...] Refills, Maintenance, 09/07/20 13:22:00 EST, ER Tablet, [facility] #[id number], 175.2, cm, 09/07/20 12:25:00 EST, Height Start Date: 09/07/20 Stop Date: 12/01/21 Status: Ordered metFORMIN 1000 mg oral tablet 1 tablet = 1,000 mg, By Mouth, 2 times a day, with meals, # 180 tablet, 2 Refills, Maintenance, 12/03/21 15:55:00 EDT, Tablet, [facility] #[id number], 175.2, cm, 09/05/21 9:45:00 EST, Height Start Date: 12/03/21 Stop Date: 08/30/22 Status: Ordered metFORMIN 1000 mg oral tablet 1 tablet = 1,000 mg, By Mouth, 2 times a day, for 90 days, with meals, # 180 tablet, 0 Refills, Hard Stop 12/03/21 15:55:00 EDT, 09/04/21 15:55:00 EST, Tablet, [facility] #[id number], 175.2, cm,06/14/21 8:20:00 EDT, Height Start Date: [...]
--- OUTSIDE RECORDS SUMMARY | 2023-01-03 01:00 | XMS_ITS | Continuity of Care Document ---
Author Name Unknown Organization [facility] Adult Address [address] [place] [address]- Care Team Providers Care Grinder Operator Tool Name Role Phone Socrates RECREATIONAL VEHICLE REPAIRER, Jonathan Breaux Primary Care Physician Encounter [facility] Date(s): 06/17/22 - 07/17/22 [facility] [address] [place] [address]- Allergies, Adverse Reactions, Alerts No Known Allergies [...] 07/04/22 9:54:00 EDT, Route to Pharmacy Electronically, [facility] #[id number], 175.2, cm, 07/04/22 9:42:00 EDT, Height, 129, kg, 11/18/21 10:28:00 EST, Dry W... Start Date: 07/04/22 Status: Ordered atorvastatin 10 mg oral tablet 1 tablet = 10 mg, By Mouth, Daily, # 90 tablet, 1 Refills, Maintenance, 05/20/22 11:37:00 EDT, [facility] #[id number], 175.2, cm, 02/18/22 14:17:00 EDT, Height, 129, kg, 11/18/21 10:28:00 EST, Dry Weight Start Date: 05/20/22 Status: Ordered benazepril-hydrochlorothiazide 20 mg-12.5 mg oral tablet 1 tablet, By Mouth, Daily, # 90 tablet, 1 Refills, Maintenance, 07/04/22 9:54:00 EDT, Tablet, [facility] #[id number], Partial fill upon patient request if the prescription is for a schedule II opioid drug., 1 tablet By Mouth Daily, 175.2, cm, ... Start Date: 07/04/22 Status: Ordered dapagliflozin 10 mg oral tablet 1 tablet = 10 mg, By Mouth, Daily, # 90 tablet, 2 Refills, Maintenance, 06/13/22 10:38:00 EDT, Tablet, [facility] #[id number], Partial fill upon patient request if the prescription is for a schedule II opioid drug., 175.2, cm, 06/13/22 10:31:00 E... Start Date: 06/13/22 Status: Ordered Eucerin Plus topical lotion 1 application, Topically, 2 times a day, PRN for dry skin, Please apply 10 times per day to affected area., # 354 mL, 2 Refills, Maintenance, 02/18/22 15:05:00 EDT, Lotion, [facility] #[id number], Partial fill upon patient request if the [...] Refills, Maintenance, 04/14/22 10:56:00 EDT, ER Tablet, [facility] #87999, 175.2, cm, 02/18/22 14:17:00 EDT, Height, 129, kg, 11/18/21 10:28:00 EST, Dry Weight Start Date: 04/14/22 Stop Date: 10/11/22 Status: Ordered metFORMIN 1000 mg oral tablet 1 tablet = 1,000 mg, By Mouth, 2 times a day, with meals, # 180 tablet, 1 Refills, Maintenance, 05/20/22 13:32:00 EDT, Tablet, [facility] #59867, 175.2, cm, 02/18/22 14:17:00 EDT, Height, 129, [...] Personnel Name: Jonathan Crowell NP Address: Address: [address] [place] [id number]
--- OUTSIDE RECORDS SUMMARY | 2023-01-03 01:00 | XMS_ITS | Continuity of Care Document ---
Author Name Unknown Organization [facility] Address [address] [place] [address]- Care Team Providers Care Instructor Of Nursing Name Role Phone Socrates KEMP, Jonathan Breaux Primary Care Physician [phone] Encounter [facility] [place] [id number] Date(s): 12/30/20 - 01/29/21 [facility]/[address] [address]- Attending Physician: AdmLizbet wang Admitting Physician: AdmtrLizbet Referring Physician: Admtr, Ar8 Allergies, Adverse Reactions, Alerts Substance Reaction Severity Status NKA Active Immunizations Given and Recorded Vaccine Date Status Refusal Reason SARS-CoV-2 (COVID-19) Ad26 vaccine 12/30/20 Given Influenza Virus Vaccine (oldterm) 07/09/20 Recorde d influenza virus vaccine, inactivated 07/18/19 Give n pneumococcal 23-valent vaccine 03/03/18 Given Medications amLODIPine 10 mg oral tablet 10 mg, 1, tablet, By Mouth, Daily, # 90 tablet, Refills 3, Tot. Refills 3, Maintenance, 09/07/20 13:34:00 EST, Route to Pharmacy Electronically, [facility] #[id number], 175.2, cm, 09/07/20 12:25:00 EST, Height Start Date: 09/07/20 Status: Ordered atorvastatin 10 mg oral tablet 1 tablet = 10 mg, By Mouth, Daily, # 90 tablet, 3 Refills, Maintenance, 09/07/20 13:34:00 EST, [facility] #[id number], 175.2, cm, 09/07/20 12:25:00 EST, Height Start Date: 09/07/20 Status: Ordered benazepril 20 mg oral tablet 1 tablet = 20 mg, By Mouth, Daily, # 90 tablet, 3 Refills, Maintenance, 09/07/20 13:35:00 EST, Tablet, [facility] #35073, 175.2, cm, 09/07/20 12:25:00 EST, Height Start Date: 09/07/20 Status: Ordered Farxiga 5 mg oral tablet 1 tablet = 5 mg, By Mouth, Daily, # 90 tablet, 1 Refills, Maintenance, 09/07/20 13:22:00 EST, Tablet, [facility] #34792, Partial fill upon patient request if the [...] Refills, Maintenance, 09/07/20 13:22:00 EST, ER Tablet, [facility] #[id number], 175.2, cm, 09/07/20 12:25:00 EST, Height Start [...]
--- OUTSIDE RECORDS SUMMARY | 2023-01-03 01:00 | XMS_ITS | Continuity of Care Document ---
Author Name Unknown Organization [facility] Adult Address [address] [place] [address]- Care Team Providers Care [place] Customs And Border Officer Name Role Phone Jonathan Crowell NP Primary Care Physician [phone] [place] [facility] [place] 09/12/20 - 10/12/20 [facility] [address] [place], [place] [address] Allergies, Adverse Reactions, Alerts Substance Reaction Severity [...] 09/07/20 13:34:00 EST, Route to Pharmacy Electronically, [facility] #[id number], 175.2, cm, 09/07/20 12:25:00 EST, Height Start Date: 09/07/20 Status: Ordered atorvastatin 10 mg oral tablet 1 tablet = 10 mg, By Mouth, Daily, # 90 tablet, 3 Refills, Maintenance, 09/07/20 13:34:00 EST, [facility] #09148, 175.2, cm, 09/07/20 12:25:00 EST, Height Start Date: 09/07/20 Status: Ordered benazepril 20 mg oral tablet 1 tablet = 20 mg, By Mouth, Daily, # 90 tablet, 3 Refills, Maintenance, 09/07/20 13:35:00 EST, Tablet, [facility] #10733, 175.2, cm, 09/07/20 12:25:00 EST, Height Start Date: 09/07/20 Status: Ordered Farxiga 5 mg oral tablet 1 tablet = 5 mg, By Mouth, Daily, # 90 tablet, 1 Refills, Maintenance, 09/07/20 13:22:00 EST, Tablet, [facility] #[id number], Partial fill upon patient request if the [...] Refills, Maintenance, 09/07/20 13:22:00 EST, ER Tablet, [facility] #24857, 175.2, cm, 09/07/20 12:25:00 EST, Height Start [...] Acute 11/30/20 13:33:00EST, 09/07/20 13:33:00 EST, Tablet, [facility] #09038, Partial fill upon patient request if the [...]
--- OUTSIDE RECORDS SUMMARY | 2023-01-03 01:00 | XMS_ITS | Continuity of Care Document ---
Author Name Unknown Organization [facility] Adult Address [address] [place] [address]- Care Team Providers Care Curriculum Specialist Name Role Phone Socrates ACCOUNTS PAYABLE ADMINISTRATOR, Jonathan Breaux Primary Care Physician [phone] Encounter [facility] [place] Date(s): 10/22/22 - 11/21/[address] [facility] Adult [address] [place] [address]- Allergies, Adverse Reactions, Alerts No Known Allergies Immunizations Given and Recorded Vaccine Date Status Refusal Reason tetanus/diphtheria/pertussis, acel(Tdap) 08/26/22 Recorded [id number] 12y+ bivalent booster vax 08/04/22 Recorded influenza [...] 07/04/22 9:54:00 EDT, Route to Pharmacy Electronically, [facility] #[id number], 175.2, cm, 07/04/22 9:42:00 EDT, Height, 129, kg, 11/18/21 10:28:00 EST, Dry W... Start Date: 07/04/22 Status: Ordered atorvastatin 10 mg oral tablet 1 tablet = 10 mg, By Mouth, Daily, # 90 tablet, 1 Refills, Maintenance, 05/20/22 11:37:00 EDT, [facility] #[id number], 175.2, cm, 02/18/22 14:17:00 EDT, Height, 129, kg, 11/18/21 10:28:00 EST, Dry Weight Start Date: 05/20/22 Status: Ordered benazepril-hydrochlorothiazide 20 mg-12.5 mg oral tablet 1 tablet, By Mouth, Daily, # 90 tablet, 1 Refills, Maintenance, 07/04/22 9:54:00 EDT, Tablet, [facility] #[id number], Partial fill upon patient request if the prescription is for a schedule II opioid drug., 1 tablet By Mouth Daily, 175.2, cm, ... Start Date: 07/04/22 Status: Ordered dapagliflozin 10 mg oral tablet 1 tablet = 10 mg, By Mouth, Daily, # 90 tablet, 2 Refills, Maintenance, 06/13/22 10:38:00 EDT, Tablet, [facility] #[id number], Partial fill upon patient request if the prescription is for a schedule II opioid drug., 175.2, cm, 06/13/22 10:31:00 E... Start Date: 06/13/22 Status: Ordered Eucerin Plus topical lotion 1 application, Topically, 2 times a day, PRN for dry skin, Please apply 10 times per day to affected area., # 354 mL, 2 Refills, Maintenance, 02/18/22 15:05:00 EDT, Lotion, [facility] #[id number], Partial fill upon patient request if the [...] Refills, Maintenance, 04/14/22 10:56:00 EDT, ER Tablet, [facility] #[id number], 175.2, cm, 02/18/22 14:17:00 EDT, Height, 129, kg, 11/18/21 10:28:00 EST, Dry Weight Start Date: 04/14/22 Stop Date: 10/11/22 Status: Ordered metFORMIN 1000 mg oral tablet 1 tablet = 1,000 mg, By Mouth, 2 times a day, with meals, # 180 tablet, 1 Refills, Maintenance, 05/20/22 13:32:00 EDT, Tablet, [facility] #[id number], 175.2, cm, 02/18/22 14:17:00 EDT, Height, 129, [...] Associate Professional Member Role: PCP Address: Address: [address] [place] [address] [address]rd [place] [address]- Care Team Related Persons Name: ERIN DUFF Address: home [address] [place] [address] Name: NILESH SCHNEIDER Address: home [address] [place] [address] Name: NILESH POOL Address: home [address] [place] [address]
--- OUTSIDE RECORDS SUMMARY | 2023-01-03 01:00 | XMS_ITS | Continuity of Care Document ---
Author Name Unknown Organization [facility] Adult Address [address] [place] [address]- Care Team Providers Care Broadloom Weaver Name Role Phone Socrates PHYSIOLOGY TEACHER, Jonathan Breaux Primary Care Physician Encounter [facility] [place] Date(s): 06/13/22 - 07/27/[address] [facility] Adult [address] [place] [address]- Attending Physician: Not on Staff, Attending MD [...] 07/04/22 9:54:00 EDT, Route to Pharmacy Electronically, [facility] #[id number], 175.2, cm, 07/04/22 9:42:00 EDT, Height, 129, kg, 11/18/21 10:28:00 EST, Dry W... Start Date: 07/04/22 Status: Ordered atorvastatin 10 mg oral tablet 1 tablet = 10 mg, By Mouth, Daily, # 90 tablet, 1 Refills, Maintenance, 05/20/22 11:37:00 EDT, [facility] #[id number], 175.2, cm, 02/18/22 14:17:00 EDT, Height, 129, kg, 11/18/21 10:28:00 EST, Dry Weight Start Date: 05/20/22 Status: Ordered benazepril-hydrochlorothiazide 20 mg-12.5 mg oral tablet 1 tablet, By Mouth, Daily, # 90 tablet, 1 Refills, Maintenance, 07/04/22 9:54:00 EDT, Tablet, [facility] #[id number], Partial fill upon patient request if the prescription is for a schedule II opioid drug., 1 tablet By Mouth Daily, 175.2, cm, ... Start Date: 07/04/22 Status: Ordered dapagliflozin 10 mg oral tablet 1 tablet = 10 mg, By Mouth, Daily, # 90 tablet, 2 Refills, Maintenance, 06/13/22 10:38:00 EDT, Tablet, [facility] #[id number], Partial fill upon patient request if the prescription is for a schedule II opioid drug., 175.2, cm, 06/13/22 10:31:00 E... Start Date: 06/13/22 Status: Ordered Eucerin Plus topical lotion 1 application, Topically, 2 times a day, PRN for dry skin, Please apply 10 times per day to affected area., # 354 mL, 2 Refills, Maintenance, 02/18/22 15:05:00 EDT, Lotion, [facility] #[id number], Partial fill upon patient request if the [...] Refills, Maintenance, 04/14/22 10:56:00 EDT, ER Tablet, [facility] #[id number], 175.2, cm, 02/18/22 14:17:00 EDT, Height, 129, kg, 11/18/21 10:28:00 EST, Dry Weight Start Date: 04/14/22 Stop Date: 10/11/22 Status: Ordered metFORMIN 1000 mg oral tablet 1 tablet = 1,000 mg, By Mouth, 2 times a day, with meals, # 180 tablet, 1 Refills, Maintenance, 05/20/22 13:32:00 EDT, Tablet, [facility] #17195, 175.2, cm, 02/18/22 14:17:00 EDT, Height, 129, [...] Personnel Name: Jonathan Crowell NP Address: Address: [address] [place] [address] [address] [place], [place] [address]
--- OUTSIDE RECORDS SUMMARY | 2023-01-03 01:00 | XMS_ITS | Continuity of Care Document ---
Author Name Unknown Organization [facility] Adult Address [address] [place] [address]- Care Team Providers Care Financial Counselor Name Role Phone Socrates PAPER GOODS MACHINE OPERATOR, Jonathan Breaux Primary Care Physician [phone] Encounter [facility] [place] Date(s): 08/26/22 - 09/25/22 [facility] Adult [address] [place] [address]- Allergies, Adverse Reactions, Alerts No Known Allergies Immunizations Given and Recorded Vaccine Date Status Refusal Reason tetanus/diphtheria/pertussis, acel(Tdap) 08/26/22 Recorded [id number] 12y+ bivalent booster vax 08/04/22 Recorded influenza [...] 07/04/22 9:54:00 EDT, Route to Pharmacy Electronically, [facility] #[id number], 175.2, cm, 07/04/22 9:42:00 EDT, Height, 129, kg, 11/18/21 10:28:00 EST, Dry W... Start Date: 07/04/22 Status: Ordered atorvastatin 10 mg oral tablet 1 tablet = 10 mg, By Mouth, Daily, # 90 tablet, 1 Refills, Maintenance, 05/20/22 11:37:00 EDT, [facility] #[id number], 175.2, cm, 02/18/22 14:17:00 EDT, Height, 129, kg, 11/18/21 10:28:00 EST, Dry Weight Start Date: 05/20/22 Status: Ordered benazepril-hydrochlorothiazide 20 mg-12.5 mg oral tablet 1 tablet, By Mouth, Daily, # 90 tablet, 1 Refills, Maintenance, 07/04/22 9:54:00 EDT, Tablet, [facility] #[id number], Partial fill upon patient request if the prescription is for a schedule II opioid drug., 1 tablet By Mouth Daily, 175.2, cm, ... Start Date: 07/04/22 Status: Ordered dapagliflozin 10 mg oral tablet 1 tablet = 10 mg, By Mouth, Daily, # 90 tablet, 2 Refills, Maintenance, 06/13/22 10:38:00 EDT, Tablet, [facility] #[id number], Partial fill upon patient request if the prescription is for a schedule II opioid drug., 175.2, cm, 06/13/22 10:31:00 E... Start Date: 06/13/22 Status: Ordered Eucerin Plus topical lotion 1 application, Topically, 2 times a day, PRN for dry skin, Please apply 10 times per day to affected area., # 354 mL, 2 Refills, Maintenance, 02/18/22 15:05:00 EDT, Lotion, [facility] #[id number], Partial fill upon patient request if the [...] Refills, Maintenance, 04/14/22 10:56:00 EDT, ER Tablet, [facility] #[id number], 175.2, cm, 02/18/22 14:17:00 EDT, Height, 129, kg, 11/18/21 10:28:00 EST, Dry Weight Start Date: 04/14/22 Stop Date: 10/11/22 Status: Ordered metFORMIN 1000 mg oral tablet 1 tablet = 1,000 mg, By Mouth, 2 times a day, with meals, # 180 tablet, 1 Refills, Maintenance, 05/20/22 13:32:00 EDT, Tablet, [facility] #[id number], 175.2, cm, 02/18/22 14:17:00 EDT, Height, 129, [...] Associate Professional Member Role: PCP Address: Address: [address] [place] [address] [address]rd [place] [address]- Care Team Related Persons Name: ERIN DUFF Address: [address] [place] [address] Name: NILESH SCHNEIDER Address: [address] [place] [address] Name: NILESH POOL Address: [address] [place] [address]
--- OUTSIDE RECORDS SUMMARY | 2023-01-03 01:00 | XMS_ITS | Continuity of Care Document ---
Author Name Unknown Organization [facility] Adult Address [address] [place] [address]- Care Team Providers Care Psychiatric Registered Nurse Name Role Phone Jonathan Crowell NP Primary Care Physician Encounter [facility] [place] Date(s): 09/07/20 - 10/07/20 [facility] Adult [address] [place], [place] [address] Allergies, Adverse Reactions, Alerts Substance Reaction Severity [...] 09/07/20 13:34:00 EST, Route to Pharmacy Electronically, [facility] #[id number], 175.2, cm, 09/07/20 12:25:00 EST, Height Start Date: 09/07/20 Status: Ordered atorvastatin 10 mg oral tablet 1 tablet = 10 mg, By Mouth, Daily, # 90 tablet, 3 Refills, Maintenance, 09/07/20 13:34:00 EST, [facility] #[id number], 175.2, cm, 09/07/20 12:25:00 EST, Height Start Date: 09/07/20 Status: Ordered benazepril 20 mg oral tablet 1 tablet = 20 mg, By Mouth, Daily, # 90 tablet, 3 Refills, Maintenance, 09/07/20 13:35:00 EST, Tablet, [facility] #[id number], 175.2, cm, 09/07/20 12:25:00 EST, Height Start Date: 09/07/20 Status: Ordered Farxiga 5 mg oral tablet 1 tablet = 5 mg, By Mouth, Daily, # 90 tablet, 1 Refills, Maintenance, 09/07/20 13:22:00 EST, Tablet, [facility] #[id number], Partial fill upon patient request if the [...] Refills, Maintenance, 09/07/20 13:22:00 EST, ER Tablet, [facility] #[id number], 175.2, cm, 09/07/20 12:25:00 EST, Height Start [...] Acute 11/30/20 13:33:00EST, 09/07/20 13:33:00 EST, Tablet, [facility] #[id number], Partial fill upon patient request if the [...]
--- OUTSIDE RECORDS SUMMARY | 2023-01-03 01:00 | XMS_ITS | Continuity of Care Document ---
Author Name Unknown Organization [facility] Adult Address [address] [place] [address]- Care Team Providers Care Type Caster Name Role Phone Jonathan Crowell NP Primary Care Physician [phone] Encounter [facility] [place] Date(s): 03/08/22 - 07/06/22 [facility] Adult [address] [place] [address]- Attending Physician: Not on Staff, Attending MD [...] 07/04/22 9:54:00 EDT, Route to Pharmacy Electronically, [facility] #[id number], 175.2, cm, 07/04/22 9:42:00 EDT, Height, 129, kg, 11/18/21 10:28:00 EST, Dry W... Start Date: 07/04/22 Status: Ordered atorvastatin 10 mg oral tablet 1 tablet = 10 mg, By Mouth, Daily, # 90 tablet, 1 Refills, Maintenance, 05/20/22 11:37:00 EDT, [facility] #[id number], 175.2, cm, 02/18/22 14:17:00 EDT, Height, 129, kg, 11/18/21 10:28:00 EST, Dry Weight Start Date: 05/20/22 Status: Ordered benazepril-hydrochlorothiazide 20 mg-12.5 mg oral tablet 1 tablet, By Mouth, Daily, # 90 tablet, 1 Refills, Maintenance, 07/04/22 9:54:00 EDT, Tablet, [facility] #[id number], Partial fill upon patient request if the prescription is for a schedule II opioid drug., 1 tablet By Mouth Daily, 175.2, cm, ... Start Date: 07/04/22 Status: Ordered dapagliflozin 10 mg oral tablet 1 tablet = 10 mg, By Mouth, Daily, # 90 tablet, 2 Refills, Maintenance, 06/13/22 10:38:00 EDT, Tablet, [facility] #[id number], Partial fill upon patient request if the prescription is for a schedule II opioid drug., 175.2, cm, 06/13/22 10:31:00 E... Start Date: 06/13/22 Status: Ordered Eucerin Plus topical lotion 1 application, Topically, 2 times a day, PRN for dry skin, Please apply 10 times per day to affected area., # 354 mL, 2 Refills, Maintenance, 02/18/22 15:05:00 EDT, Lotion, [facility] #[id number], Partial fill upon patient request if the [...] Refills, Maintenance, 04/14/22 10:56:00 EDT, ER Tablet, [facility] #[id number], 175.2, cm, 02/18/22 14:17:00 EDT, Height, 129, kg, 11/18/21 10:28:00 EST, Dry Weight Start Date: 04/14/22 Stop Date: 10/11/22 Status: Ordered metFORMIN 1000 mg oral tablet 1 tablet = 1,000 mg, By Mouth, 2 times a day, with meals, # 180 tablet, 1 Refills, Maintenance, 05/20/22 13:32:00 EDT, Tablet, [facility] #[id number], 175.2, cm, 02/18/22 14:17:00 EDT, Height, 129, [...] Personnel Name: Jonathan Crowell NP Address: Address: [address] [place] [id number]
--- OUTSIDE RECORDS SUMMARY | 2023-01-03 01:00 | XMS_ITS | Continuity of Care Document ---
Author Name Unknown Organization [facility] Adult Address [address] [place] [address]- Care Team Providers Care Auto Headlight Mechanic Name Role Phone Socrates MANAGER INTENSIVE CARE, Jonathan Breaux Primary Care Physician [phone] Encounter [facility] [place] Date(s): 07/04/22 - 07/11/22 [facility] Adult [address] [place] [address]- Attending Physician: Not on Staff, Attending MD [...] 07/04/22 9:54:00 EDT, Route to Pharmacy Electronically, [facility] #[id number], 175.2, cm, 07/04/22 9:42:00 EDT, Height, 129, kg, 11/18/21 10:28:00 EST, Dry W... Start Date: 07/04/22 Status: Ordered atorvastatin 10 mg oral tablet 1 tablet = 10 mg, By Mouth, Daily, # 90 tablet, 1 Refills, Maintenance, 05/20/22 11:37:00 EDT, [facility] #[id number], 175.2, cm, 02/18/22 14:17:00 EDT, Height, 129, kg, 11/18/21 10:28:00 EST, Dry Weight Start Date: 05/20/22 Status: Ordered benazepril-hydrochlorothiazide 20 mg-12.5 mg oral tablet 1 tablet, By Mouth, Daily, # 90 tablet, 1 Refills, Maintenance, 07/04/22 9:54:00 EDT, Tablet, [facility] #[id number], Partial fill upon patient request if the prescription is for a schedule II opioid drug., 1 tablet By Mouth Daily, 175.2, cm, ... Start Date: 07/04/22 Status: Ordered dapagliflozin 10 mg oral tablet 1 tablet = 10 mg, By Mouth, Daily, # 90 tablet, 2 Refills, Maintenance, 06/13/22 10:38:00 EDT, Tablet, [facility] #[id number], Partial fill upon patient request if the prescription is for a schedule II opioid drug., 175.2, cm, 06/13/22 10:31:00 E... Start Date: 06/13/22 Status: Ordered Eucerin Plus topical lotion 1 application, Topically, 2 times a day, PRN for dry skin, Please apply 10 times per day to affected area., # 354 mL, 2 Refills, Maintenance, 02/18/22 15:05:00 EDT, Lotion, [facility] #[id number], Partial fill upon patient request if the [...] Refills, Maintenance, 04/14/22 10:56:00 EDT, ER Tablet, [facility] #[id number], 175.2, cm, 02/18/22 14:17:00 EDT, Height, 129, kg, 11/18/21 10:28:00 EST, Dry Weight Start Date: 04/14/22 Stop Date: 10/11/22 Status: Ordered metFORMIN 1000 mg oral tablet 1 tablet = 1,000 mg, By Mouth, 2 times a day, with meals, # 180 tablet, 1 Refills, Maintenance, 05/20/22 13:32:00 EDT, Tablet, [facility] #[id number], 175.2, cm, 02/18/22 14:17:00 EDT, Height, 129, [...] DM (diabetes mellitus), type 2 Confirmed Active Vital Signs Most recent to oldest [Reference Range]: 1 2 Height 175.2 cm (07/04/22 9:38 AM) 175.2 cm (07/04/22 9:30 AM) Oxygen Saturation [94-100 %] 97 % (07/04/22 9:30 AM) Pulse Rate [55-90 bpm] 87 bpm (07/04/22 9:38 AM) 83 bpm (07/04/22 9:30 AM) Blood Pressure [90-138/55-84 mm Hg] 138/ 91mm Hg (07/04/22 9:38 AM) 147/88mm Hg *H* (07/04/22 9:30 AM) Mode of Delivery (Oxygen) Room air (07/04/22 9:30 AM) Blood pressure sites Arm, right (07/04/22 9:38 AM) Arm, right (07/04/22 9:30 AM) Social History Social History Type Response Smoking Status Never smoker entered on: 03/03/18 Sex Patient Care team information Personnel Name: Jonathan Crowell NP Address: Address: [address]rd [address] [place], [place] [address]
--- OUTSIDE RECORDS SUMMARY | 2023-01-03 01:00 | XMS_ITS | Continuity of Care Document ---
Author Name Unknown Organization [facility] Adult Address [address] [place] [address]- Care Team Providers Care Controller Repairer And Tester Name Role Phone Socrates PRIVATE BRANCH EXCHANGE SERVICE ADVISER, Jonathan Breaux Primary Care Physician Encounter [facility] [place] Date(s): 12/11/21 - 01/10/22 [facility] Adult [address] [place] [address]- Attending Physician: Lizbet Wade Admitting Physician: Lizbet [...] 09/26/21 13:46:00 EST, Route to Pharmacy Electronically, [facility] #[id number], 175.2, cm, 09/05/21 9:45:00 EST, Height Start Date: 09/26/21 Status: Ordered atorvastatin 10 mg oral tablet 1 tablet = 10 mg, By Mouth, Daily, # 90 tablet, 1 Refills, Maintenance, 09/26/21 13:22:00 EST, [facility] #[id number], 175.2, cm, 09/05/21 9:45:00 EST, Height Start Date: 09/26/21 Status: Ordered benazepril 40 mg oral tablet 1 tablet = 40 mg, By Mouth, Daily, # 90 tablet, 3 Refills, Maintenance, 10/09/21 10:38:00 EST, Tablet, [facility] #[id number], Partial fill upon patient request if the prescription is for a schedule II opioid drug. Dose increase, 175.2, cm, 10/09... Start Date: 10/09/21 Status: Ordered Ecotrin 325 mg oral delayed [...] 90 tablet, 0 Refills, 10/17/21 11:02:00 EST, [facility] #[id number], 175.2, cm, 10/09/21 10:42:00 EST, Height Start [...] Refills, Maintenance, 12/01/21 13:22:00 EDT, ER Tablet, [facility] #[id number], 175.2, cm, 10/09/21 10:42:00 EST, Height Start Date: 12/01/21 Stop Date: 05/30/22 Status: Ordered metFORMIN 1000 mg oral tablet 1 tablet = 1,000 mg, By Mouth, 2 times a day, with meals, # 180 tablet, 2 Refills, Maintenance, 12/03/21 15:55:00 EDT, Tablet, [facility] #[id number], 175.2, cm, 09/05/21 9:45:00 EST, Height Start [...]
--- OUTSIDE RECORDS SUMMARY | 2023-01-03 01:00 | XMS_ITS | Continuity of Care Document ---
Author Name Unknown Organization [facility] Adult Address [address] [place] [address]- Care Team Providers Care Office Worker Name Role Phone Socrates KEMP, Jonathan Breaux Primary Care Physician [phone] Encounter [facility] [place] Date(s): 07/02/21 - 07/09/21 [facility] Adult [address] [place] [address] Attending Physician: Sushil Pedro MD Allergies, Adverse Reactions, Alerts Substance Reaction [...] 09/07/20 13:34:00 EST, Route to Pharmacy Electronically, [facility] #[id number], 175.2, cm, 09/07/20 12:25:00 EST, Height Start Date: 09/07/20 Status: Ordered atorvastatin 10 mg oral tablet 1 tablet = 10 mg, By Mouth, Daily, # 90 tablet, 3 Refills, Maintenance, 09/07/20 13:34:00 EST, [facility] #[id number], 175.2, cm, 09/07/20 12:25:00 EST, Height Start Date: 09/07/20 Status: Ordered benazepril 20 mg oral tablet 1 tablet = 20 mg, By Mouth, Daily, # 90 tablet, 3 Refills, Maintenance, 09/07/20 13:35:00 EST, Tablet, [facility] #[id number], 175.2, cm, 09/07/20 12:25:00 EST, Height Start Date: 09/07/20 Status: Ordered Farxiga 5 mg oral tablet 1 tablet, By Mouth, Daily, # 90 tablet, 0 Refills, [facility] #[id number], 175.2, cm, 09/07/2012:25:00 EST, Height Start Date: [...] Refills, Maintenance, 09/07/20 13:22:00 EST, ER Tablet, [facility] #[id number], 175.2, cm, 09/07/20 12:25:00 EST, Height Start [...]
--- OUTSIDE RECORDS SUMMARY | 2023-01-03 01:00 | XMS_ITS | Continuity of Care Document ---
Author Name Unknown Organization [facility] Address Unknown Care Team Providers Care Water Hauler Name Role Phone Socrates KEMP, Jonathan Breaux Primary Care Physician [phone] Encounter [facility] [place] Date(s): 02/05/22 - 02/12/22 [facility] Attending Physician: Tano Hester MD Referring Physician: Not on Staff, Referring [...] 09/26/21 13:46:00 EST, Route to Pharmacy Electronically, [facility] #[id number], 175.2, cm, 09/05/21 9:45:00 EST, Height Start Date: 09/26/21 Status: Ordered atorvastatin 10 mg oral tablet 1 tablet = 10 mg, By Mouth, Daily, # 90 tablet, 1 Refills, Maintenance, 09/26/21 13:22:00 EST, [facility] #[id number], 175.2, cm, 09/05/21 9:45:00 EST, Height Start Date: 09/26/21 Status: Ordered benazepril 40 mg oral tablet 1 tablet = 40 mg, By Mouth, Daily, # 90 tablet, 3 Refills, Maintenance, 10/09/21 10:38:00 EST, Tablet, [facility] #[id number], Partial fill upon patient request if the prescription is for a schedule II opioid drug. Dose increase, 175.2, cm, 10/09... Start Date: 10/09/21 Status: Ordered Farxiga 5 mg oral tablet 1 tablet, By Mouth, Daily, # 90 tablet, 0 Refills, 10/17/21 11:02:00 EST, [facility] #[id number], 175.2, cm, 10/09/21 10:42:00 EST, Height Start [...] Refills, Maintenance, 12/01/21 13:22:00 EDT, ER Tablet, [facility] #[id number], 175.2, cm, 10/09/21 10:42:00 EST, Height Start Date: 12/01/21 Stop Date: 05/30/22 Status: Ordered metFORMIN 1000 mg oral tablet 1 tablet = 1,000 mg, By Mouth, 2 times a day, with meals, # 180 tablet, 2 Refills, Maintenance, 12/03/21 15:55:00 EDT, Tablet, [facility] #42515, 175.2, cm, 09/05/21 9:45:00 EST, Height Start Date: 12/03/21 Stop Date: 08/30/22 Status: Ordered oxyCODONE 5 mg oral tablet See Instructions, 1 tablet By Mouth Every 4-6 hours NEEDED FOR PAIN TAKE WITH FOOD. NO DRIVING. CAN CAUSE CONSTIPATION., Refills 0, Tot. Refills 0, Maintenance, 11/18/21 10:38:00 EST, InstructionsReplace Required Details, Partial fill upon patien... Start Date: 11/18/21 Status: Ordered oxyCODONE 5 mg oral tablet 5 mg, 1, tablet, By Mouth, Every 6 hours, PRN, # 10 tablet, Refills 0, Tot. Refills 0, Acute 02/18/22 12:23:00 EDT, as needed for pain, 02/07/22 12:23:00 EDT, Route to Pharmacy Electronically, [facility] #[id number], Partial fill upon patient req... Start Date: 02/07/22 Stop Date: 02/18/22 Status: Ordered Silvadene 1% cream 1 application, Topically, Daily, # 50 Gm, 0 Refills, Acute 02/19/22 14:05:00 EDT, 02/05/22 14:05:00EDT, Cream, [facility] #[id number], Partial fill upon patient request if the prescription is for a schedule II opioid drug., 1 application Topical... Start Date: 02/05/22 Stop Date: 02/19/22 Status: Ordered Silvadene 1% cream 1 application, Topically, 2 times a day, # 400 Gm, 0 Refills, Acute 02/18/22 11:03:00 EDT, 02/11/2211:02:00 EDT, Cream, [facility] #[id number], Partial fill upon patient request if the prescription is for a schedule II opioid drug., 1 applicatio... Start Date: 02/11/22 Stop Date: 02/18/22 Status: Ordered silver sulfADIAZINE 1% topical cream [...] oldest [Reference Range]: 1 Height 175.2 cm (02/05/22 1:41 PM) Weight 123 kg (02/05/22 1:41 PM) Pulse Rate [55-90 bpm] 90 bpm (02/05/22 1:41 PM) Body Mass Index [18.5-24.99] 40.07 *>HHI* (02/05/22 1:41 PM) Blood Pressure [90-138/55-84 mm Hg] 150/ 85mm Hg *H* (02/05/22 1:41 PM) Temperature [96.8-100.4 DegF] 97.9 DegF (02/05/22 1:41 PM) Blood pressure sites Arm, left (02/05/22 1:41 PM) Temperature Route Temporal (02/05/22 1:41 PM) Weight Obtained Via Patient/family state d (02/05/22 1:41 PM) Social History Social History Type Response Smoking Status Never smoker entered on: 03/03/18 Sex
--- OUTSIDE RECORDS SUMMARY | 2023-01-03 01:00 | XMS_ITS | Continuity of Care Document ---
Author Name Unknown Organization [facility] Adult Address [address] [place] [address]- Care Team Providers Care Synthetic Department Supervisor Name Role Phone Jonathan Crowell NP Primary Care Physician [phone] Encounter [facility] [place] Date(s): 10/14/21 - 11/13/21 [facility] Adult [address] [place] [address]- Allergies, Adverse Reactions, Alerts No Known Allergies [...] 09/26/21 13:46:00 EST, Route to Pharmacy Electronically, [facility] #[id number], 175.2, cm, 09/05/21 9:45:00 EST, Height Start Date: 09/26/21 Status: Ordered atorvastatin 10 mg oral tablet 1 tablet = 10 mg, By Mouth, Daily, # 90 tablet, 1 Refills, Maintenance, 09/26/21 13:22:00 EST, [facility] #[id number], 175.2, cm, 09/05/21 9:45:00 EST, Height Start Date: 09/26/21 Status: Ordered benazepril 40 mg oral tablet 1 tablet = 40 mg, By Mouth, Daily, # 90 tablet, 3 Refills, Maintenance, 10/09/21 10:38:00 EST, Tablet, [facility] #[id number], Partial fill upon patient request if the prescription is for a schedule II opioid drug. Dose increase, 175.2, cm, 10/09... Start Date: 10/09/21 Status: Ordered Farxiga 5 mg oral tablet 1 tablet, By Mouth, Daily, # 90 tablet, 0 Refills, 10/17/21 11:02:00 EST, [facility] #[id number], 175.2, cm, 10/09/21 10:42:00 EST, Height Start [...] 13:22:00 EDT, 09/07/20 13:22:00 EST, ER Tablet, [facility] #[id number], 175.2,cm, 09/07/20 12:25:00 EST, Height Start Date: 09/07/20 Stop Date: 12/01/21 Status: Ordered glipiZIDE 10 mg oral tablet, extended release 1 tablet = 10 mg, By Mouth, 2 times a day, with breakfast, # 180 tablet, 1 Refills, Maintenance, 12/01/21 13:22:00 EDT, ER Tablet, [facility] #[id number], 175.2, cm, 10/09/21 10:42:00 EST, Height Start Date: 12/01/21 Stop Date: 05/30/22 Status: Ordered metFORMIN 1000 mg oral tablet 1 tablet = 1,000 mg, By Mouth, 2 times a day, with meals, # 180 tablet, 2 Refills, Maintenance, 12/03/21 15:55:00 EDT, Tablet, [facility] #[id number], 175.2, cm, 09/05/21 9:45:00 EST, Height Start Date: 12/03/21 Stop Date: 08/30/22 Status: Ordered metFORMIN 1000 mg oral tablet 1 tablet = 1,000 mg, By Mouth, 2 times a day, for 90 days, with meals, # 180 tablet, 0 Refills, Hard Stop 12/03/21 15:55:00 EDT, 09/04/21 15:55:00 EST, Tablet, [facility] #[id number], 175.2, cm,06/14/21 8:20:00 EDT, Height Start Date: [...]
--- OUTSIDE RECORDS SUMMARY | 2023-01-03 01:00 | XMS_ITS | Continuity of Care Document ---
Author Name Unknown Organization [facility] Adult Address [address] [place] [address]- Care Team Providers Care Completions Engineer Name Role Phone Socrates KEMP, Jonathan Breaux Primary Care Physician [phone] [place] [facility] [place] 11[place]21/21 [facility] Adult [address] [place] [address]- Encounter Diagnosis Severe obesity(Discharge Diagnosis) - 11/14/21 Morbid obesity with BMI of 50.0-59.9, adult(Discharge Diagnosis) - 11/14/21 DM (diabetes mellitus), type 2(Discharge Diagnosis) - 11/14/21 Attending Physician: Jonathan Crowell NP Referring Physician: Adelfo PRICE, Lissa Allergies, Adverse Reactions, Alerts No Known Allergies [...] 09/26/21 13:46:00 EST, Route to Pharmacy Electronically, [facility] #[id number], 175.2, cm, 09/05/21 9:45:00 EST, Height Start Date: 09/26/21 Status: Ordered atorvastatin 10 mg oral tablet 1 tablet = 10 mg, By Mouth, Daily, # 90 tablet, 1 Refills, Maintenance, 09/26/21 13:22:00 EST, [facility] #[id number], 175.2, cm, 09/05/21 9:45:00 EST, Height Start Date: 09/26/21 Status: Ordered benazepril 40 mg oral tablet 1 tablet = 40 mg, By Mouth, Daily, # 90 tablet, 3 Refills, Maintenance, 10/09/21 10:38:00 EST, Tablet, [facility] #[id number], Partial fill upon patient request if the [...] 90 tablet, 0 Refills, 10/17/21 11:02:00 EST, [facility] #[id number], 175.2, cm, 10/09/21 10:42:00 EST, Height Start [...] Refills, Maintenance, 12/01/21 13:22:00 EDT, ER Tablet, [facility] #[id number], 175.2, cm, 10/09/21 10:42:00 EST, Height Start Date: 12/01/21 Stop Date: 05/30/22 Status: Ordered metFORMIN 1000 mg oral tablet 1 tablet = 1,000 mg, By Mouth, 2 times a day, with meals, # 180 tablet, 2 Refills, Maintenance, 12/03/21 15:55:00 EDT, Tablet, [facility] #[id number], 175.2, cm, 09/05/21 9:45:00 EST, Height Start [...] Dates Health Status Cl inical Service Informant DM (diabetes mellitus), type 2 Discharge Diagnosis 11/14/21 Morbid obesity with BMI of 50.0-59.9, adult Discharge Diagnosis 11/14/21 Severe obesity Discharge Diagnosis 11/14/21 Vital Signs Most recent to oldest [Reference Range]: 1 2 3 Height 175.2 cm (11/14/21 10:51 AM) 175.2 cm (11/14/21 10:49 AM) 175.2 cm (11/14/21 10:33 AM) Weight 129.8 kg (11/14/21 10:49 AM) 129.8 kg (11/14/21 10:33 AM) Oxygen Saturation [94-100 %] 96 % (11/14/21 10:33 AM) Pulse Rate [55-90 bpm] 75 bpm (11/14/21 10:33 AM) Body Mass Index [18.5-24.99] 42.29 *>HHI* (11/14/21 10:33 AM) Blood Pressure [90-138/55-84 mm Hg] 126/74mm Hg (11/14/21 10:51 AM) 150/89mm Hg *H* (11/14/21 10:33 AM) Respiratory Rate [16-30 br/min] 16 br/min (11/14/21 10:33 AM) Mode of Delivery (Oxygen) Room air (11/14/21 10:33 AM) Blood pressure sites Arm, left (11/14/21 10:51 AM) Arm, right (11/14/21 10:33 AM) Weight Obtained Via Standing scale (11/14/21 10:33 AM) Social History Social History Type Response Smoking Status Never smoker entered on: 03/03/18 Sex
--- OUTSIDE RECORDS SUMMARY | 2023-01-03 01:00 | XMS_ITS | Continuity of Care Document ---
Author Name Unknown Organization [facility] Adult Address [address] [place] [address]- Care Team Providers Care Medical Chemist Name Role Phone Socrates KEMP, Jonathan Breaux Primary Care Physician [phone] Encounter [facility] [place] Date(s): 08/03/19 - 10/20/19 [facility] Adult [address] [place] [address]- [facility] Attending Physician: Not on Staff, Attending MD [...] 07/18/19 13:55:22 EDT, Route to Pharmacy Electronically, [id number], [facility] #[id number] Start Date: 07/18/19 Status: Ordered atorvastatin 10 mg oral tablet 1 tablet = 10 mg, By Mouth, Daily, # 30 tablet, 6 Refills, Maintenance, Route to Pharmacy Electronically, [id number], [facility] [id number] Start Date: 03/12/18 Stop Date: 10/08/18 Status: Ordered benazepril 10 mg oral tablet 1 tablet = 10 mg, By Mouth, Daily, # 30 tablet, 1 Refills, Maintenance, 03/04/18 14:26:58 EDT, Tablet Start Date: 03/04/18 Stop Date: 05/03/18 Status: Ordered ciclopirox 8% topical solution 1 application, Topically, Daily, for 12 week(s), as directed to affected area, # 6.6 mL, 2 Refills,Acute 03/26/20 13:57:23 EDT, 07/18/19 13:57:23 EDT, Solution, 1 application Topically Daily,x12 week(s),Instr:as directed; to affected area Start Date: 07/18/19 Stop Date: 03/26/20 Status: Ordered Freestyle Lite Lancets See Instructions, [...] 10/28/18 Stop Date: 07/19/20 Status: Ordered glipiZIDE 5 mg oral tablet, extended release 1 tablet = 5 mg, By Mouth, Daily, with breakfast, # 30 tablet, 6 Refills, Maintenance, 07/18/19 12:19:57 EDT, ER Tablet Start Date: 07/18/19 Status: Ordered metFORMIN 1000 mg oral tablet [...]
--- OUTSIDE RECORDS SUMMARY | 2023-01-03 01:00 | XMS_ITS | Continuity of Care Document ---
Author Name Unknown Organization [facility] Adult Address [address] [place] [address]- Care Team Providers Care Mattress Stuffer Name Role Phone Jonathan Crowell NP Primary Care Physician En[place] [facility] [place](s): 06/14/21 - 06/21/21 [facility] Adult [address] [place] [address]- Encounter Diagnosis Wound of right foot(Discharge Diagnosis) - 06/14/21 DM (diabetes mellitus), type 2(Discharge Diagnosis) - 06/14/21 Morbid obesity with BMI of 50.0-59.9, adult(Discharge Diagnosis) - 06/14/21 Attending Physician: Sushil Pedro MD Referring Physician: Jonathan Crowell NP Allergies, Adverse [...] 09/07/20 13:34:00 EST, Route to Pharmacy Electronically, [facility] #[id number], 175.2, cm, 09/07/20 12:25:00 EST, Height Start Date: 09/07/20 Status: Ordered atorvastatin 10 mg oral tablet 1 tablet = 10 mg, By Mouth, Daily, # 90 tablet, 3 Refills, Maintenance, 09/07/20 13:34:00 EST, [facility] #[id number], 175.2, cm, 09/07/20 12:25:00 EST, Height Start Date: 09/07/20 Status: Ordered benazepril 20 mg oral tablet 1 tablet = 20 mg, By Mouth, Daily, # 90 tablet, 3 Refills, Maintenance, 09/07/20 13:35:00 EST, Tablet, [facility] #[id number], 175.2, cm, 09/07/20 12:25:00 EST, Height Start Date: 09/07/20 Status: Ordered Farxiga 5 mg oral tablet 1 tablet, By Mouth, Daily, # 90 tablet, 0 Refills, [facility] #[id number], 175.2, cm, 09/07/2012:25:00 EST, Height Start Date: [...] Refills, Maintenance, 09/07/20 13:22:00 EST, ER Tablet, [facility] #[id number], 175.2, cm, 09/07/20 12:25:00 EST, Height Start [...] Dates Health Status Cl inical Service Informant Wound of right foot Discharge Diagnosis 06/14/21 DM (diabetes mellitus), type 2 Discharge Diagnosis 06/14/21 Morbid obesity with BMI of 50.0-59.9, adult Discharge Diagnosis 06/14/21 Vital Signs Most recent to oldest [Reference Range]: 1 Height 175.2 cm (06/14/21 8:20 AM) Weight 132 kg (06/14/21 8:20 AM) Oxygen Saturation [94-100 %] 98 % (06/14/21 8:20 AM) Pulse Rate [55-90 bpm] 66 bpm (06/14/21 8:20 AM) Body Mass Index [18.5-24.99] 43 *>HHI* (06/14/21 8:20 AM) Blood Pressure [90-138/55-84 mm Hg] 130/ 80mm Hg (06/14/21 8:20 AM) Mode of Delivery (Oxygen) Room air (06/14/21 8:20 AM) Blood pressure sites Arm, left (06/14/21 8:20 AM) Weight Obtained Via Standing scale (06/14/21 8:20 AM) Social History Social History Type Response Smoking Status Never smoker entered on: 03/03/18 Sex
--- OUTSIDE RECORDS SUMMARY | 2023-01-03 01:00 | XMS_ITS | Continuity of Care Document ---
Author Name Unknown Organization [facility] Adult Address [address] [place] [address]- Care Team Providers Care Track Announcer Name Role Phone Socrates AUDITOR INTERNAL, Jonathan Breaux Primary Care Physician [phone] Encounter [facility] [place] Date(s): 06/13/22 - 07/13/22 [facility] Adult [address] [place] [address]- Allergies, Adverse Reactions, Alerts No Known Allergies [...] 07/04/22 9:54:00 EDT, Route to Pharmacy Electronically, [facility] #[id number], 175.2, cm, 07/04/22 9:42:00 EDT, Height, 129, kg, 11/18/21 10:28:00 EST, Dry W... Start Date: 07/04/22 Status: Ordered atorvastatin 10 mg oral tablet 1 tablet = 10 mg, By Mouth, Daily, # 90 tablet, 1 Refills, Maintenance, 05/20/22 11:37:00 EDT, [facility] #17083, 175.2, cm, 02/18/22 14:17:00 EDT, Height, 129, kg, 11/18/21 10:28:00 EST, Dry Weight Start Date: 05/20/22 Status: Ordered benazepril-hydrochlorothiazide 20 mg-12.5 mg oral tablet 1 tablet, By Mouth, Daily, # 90 tablet, 1 Refills, Maintenance, 07/04/22 9:54:00 EDT, Tablet, [facility] #[id number], Partial fill upon patient request if the prescription is for a schedule II opioid drug., 1 tablet By Mouth Daily, 175.2, cm, ... Start Date: 07/04/22 Status: Ordered dapagliflozin 10 mg oral tablet 1 tablet = 10 mg, By Mouth, Daily, # 90 tablet, 2 Refills, Maintenance, 06/13/22 10:38:00 EDT, Tablet, [facility] #[id number], Partial fill upon patient request if the prescription is for a schedule II opioid drug., 175.2, cm, 06/13/22 10:31:00 E... Start Date: 06/13/22 Status: Ordered Eucerin Plus topical lotion 1 application, Topically, 2 times a day, PRN for dry skin, Please apply 10 times per day to affected area., # 354 mL, 2 Refills, Maintenance, 02/18/22 15:05:00 EDT, Lotion, [facility] #[id number], Partial fill upon patient request if the [...] Refills, Maintenance, 04/14/22 10:56:00 EDT, ER Tablet, [facility] #00166, 175.2, cm, 02/18/22 14:17:00 EDT, Height, 129, kg, 11/18/21 10:28:00 EST, Dry Weight Start Date: 04/14/22 Stop Date: 10/11/22 Status: Ordered metFORMIN 1000 mg oral tablet 1 tablet = 1,000 mg, By Mouth, 2 times a day, with meals, # 180 tablet, 1 Refills, Maintenance, 05/20/22 13:32:00 EDT, Tablet, [facility] #[id number], 175.2, cm, 02/18/22 14:17:00 EDT, Height, 129, [...] Personnel Name: Jonathan Crowell NP Address: Address: [address] [place] [address] [address] [place], [place] [address]
--- OUTSIDE RECORDS SUMMARY | 2023-01-03 01:00 | XMS_ITS | Continuity of Care Document ---
Author Name Unknown Organization [facility] Adult Address [address] [place] [address]- Care Team Providers Care Supervisor Sheet Manufacturing Name Role Phone Jonathan Crowell NP Primary Care Physician Encounter [facility] [place] Date(s): 07/18/19 - 10/20/19 [facility] Adult [address] [place] [address]- [facility] Attending Physician: Jonathan Crowell NP Allergies, Adverse Reactions, [...] 07/18/19 13:55:22 EDT, Route to Pharmacy Electronically, [id number], [facility] #[id number] Start Date: 07/18/19 Status: Ordered atorvastatin 10 mg oral tablet 1 tablet = 10 mg, By Mouth, Daily, # 30 tablet, 6 Refills, Maintenance, Route to Pharmacy Electronically, [id number], [facility] [id number] Start Date: 03/12/18 Stop Date: 10/08/18 Status: [...]
--- OUTSIDE RECORDS SUMMARY | 2023-01-03 01:00 | XMS_ITS | Continuity of Care Document ---
Author Name Unknown Organization [facility] Adult Address [address] [place] [address]- Care Team Providers Care Material Flow Engineer Name Role Phone Jonathan Crowell NP Primary Care Physician [place] [facility] [place]09/20 [facility] Adult [address] [place], [place] [address] Attending Physician: Not on Staff, Attending [...] 09/07/20 13:34:00 EST, Route to Pharmacy Electronically, [facility] #[id number], 175.2, cm, 09/07/20 12:25:00 EST, Height Start Date: 09/07/20 Status: Ordered atorvastatin 10 mg oral tablet 1 tablet = 10 mg, By Mouth, Daily, # 90 tablet, 3 Refills, Maintenance, 09/07/20 13:34:00 EST, [facility] #[id number], 175.2, cm, 09/07/20 12:25:00 EST, Height Start Date: 09/07/20 Status: Ordered benazepril 20 mg oral tablet 1 tablet = 20 mg, By Mouth, Daily, # 90 tablet, 3 Refills, Maintenance, 09/07/20 13:35:00 EST, Tablet, [facility] #[id number], 175.2, cm, 09/07/20 12:25:00 EST, Height Start Date: 09/07/20 Status: Ordered Farxiga 5 mg oral tablet 1 tablet = 5 mg, By Mouth, Daily, # 90 tablet, 1 Refills, Maintenance, 09/07/20 13:22:00 EST, Tablet, [facility] #[id number], Partial fill upon patient request if the [...] Refills, Maintenance, 09/07/20 13:22:00 EST, ER Tablet, [facility] #[id number], 175.2, cm, 09/07/20 12:25:00 EST, Height Start [...] Acute 11/30/20 13:33:00EST, 09/07/20 13:33:00 EST, Tablet, [facility] #[id number], Partial fill upon patient request if the [...]
--- OUTSIDE RECORDS SUMMARY | 2023-01-03 01:00 | XMS_ITS | Continuity of Care Document ---
Author Name Unknown Organization [facility] Adult Address [address] [place] [address]- Care Team Providers Care Vendor Management Specialist Name Role Phone Socrates KEMP, Jonathan Breaux Primary Care Physician En[place] [facility] [place] Date(s): 09/07/20 - 09/14/20 [facility] Adult [address] [place] [address]- Encounter Diagnosis Medicare annual wellness visit, subsequent(Discharge Diagnosis) - 09/07/20 DM (diabetes mellitus), type 2(Discharge Diagnosis) - 09/07/20 HTN (hypertension)(Discharge Diagnosis) - 09/07/20 Hyperlipidemia(Discharge Diagnosis) - 09/07/20 Morbid obesity with BMI of 50.0-59.9, adult(Discharge Diagnosis) - 09/07/20 BALDEV on CPAP(Discharge Diagnosis) - 09/07/20 Attending Physician: Jonathan Crowell NP Referring Physician: [...] 09/07/20 13:34:00 EST, Route to Pharmacy Electronically, [facility] #[id number], 175.2, cm, 09/07/20 12:25:00 EST, Height Start Date: 09/07/20 Status: Ordered atorvastatin 10 mg oral tablet 1 tablet = 10 mg, By Mouth, Daily, # 90 tablet, 3 Refills, Maintenance, 09/07/20 13:34:00 EST, [facility] #[id number], 175.2, cm, 09/07/20 12:25:00 EST, Height Start Date: 09/07/20 Status: Ordered benazepril 20 mg oral tablet 1 tablet = 20 mg, By Mouth, Daily, # 90 tablet, 3 Refills, Maintenance, 09/07/20 13:35:00 EST, Tablet, [facility] #[id number], 175.2, cm, 09/07/20 12:25:00 EST, Height Start Date: 09/07/20 Status: Ordered Farxiga 5 mg oral tablet 1 tablet = 5 mg, By Mouth, Daily, # 90 tablet, 1 Refills, Maintenance, 09/07/20 13:22:00 EST, Tablet, [facility] #[id number], Partial fill upon patient request if the [...] Refills, Maintenance, 09/07/20 13:22:00 EST, ER Tablet, [facility] #[id number], 175.2, cm, 09/07/20 12:25:00 EST, Height Start [...] Acute 11/30/20 13:33:00EST, 09/07/20 13:33:00 EST, Tablet, [facility] #28619, Partial fill upon patient request if the [...] Effective Dates Health Status Clinical Service Informant Medicare annual wellness visit, subsequent Discharge Diagnosis 09/07/20 DM (diabetes mellitus), type 2 Discharge Diagnosis 09/07/20 HTN (hypertension) Discharge Diagnosis 09/07/20 Hyperlipidemia Discharge Diagnosis 09/07/20 Morbid obesity with BMI of 50.0-59.9, adult Discharge Diagnosis 09/07/20 BALDEV on CPAP Discharge Diagnosis 09/07/20 Vital Signs Most recent to oldest [Reference Range]: 1 Height 175.2 cm (09/07/20 12:25 PM) Weight 130.8 kg (09/07/20 12:25 PM) Oxygen Saturation [94-100 %] 98 % (09/07/20 12:25 PM) Pulse Rate [55-90 bpm] 85 bpm (09/07/20 12:25 PM) Body Mass Index [18.5-24.99] 42.61 *>HHI* (09/07/20 12:25 PM) Blood Pressure [90-138/55-84 mm Hg] 122/ 82mm Hg (09/07/20 12:25 PM) Respiratory Rate [16-30 br/min] 16 br/mi n (09/07/20 12:25 PM) Mode of Delivery (Oxygen) Room air (09/07/20 12:25 PM) Blood pressure sites Arm, left (09/07/20 12:25 PM) Weight Obtained Via Standing scale (09/07/20 12:25 PM) Social History Social History Type Response Smoking Status Never smoker entered on: 03/03/18 Sex
--- OUTSIDE RECORDS SUMMARY | 2023-01-03 01:00 | XMS_ITS | Continuity of Care Document ---
Author Name Unknown Organization [facility] Address Unknown Care Team Providers Care Retort Forker Name Role Phone Socrates KEMP, Jonathan Breaux Primary Care Physician [place] [facility] [place]): 02/11/22 - 02/18/22 [facility] Attending Physician: Kiesha Styles [...] 09/26/21 13:46:00 EST, Route to Pharmacy Electronically, [facility] #[id number], 175.2, cm, 09/05/21 9:45:00 EST, Height Start Date: 09/26/21 Status: Ordered atorvastatin 10 mg oral tablet 1 tablet = 10 mg, By Mouth, Daily, # 90 tablet, 1 Refills, Maintenance, 09/26/21 13:22:00 EST, [facility] #[id number], 175.2, cm, 09/05/21 9:45:00 EST, Height Start Date: 09/26/21 Status: Ordered benazepril 40 mg oral tablet 1 tablet = 40 mg, By Mouth, Daily, # 90 tablet, 3 Refills, Maintenance, 10/09/21 10:38:00 EST, Tablet, [facility] #[id number], Partial fill upon patient request if the prescription is for a schedule II opioid drug. Dose increase, 175.2, cm, 10/09... Start Date: 10/09/21 Status: Ordered Eucerin Plus topical lotion 1 application, Topically, 2 times a day, PRN for dry skin, Please apply 10 times per day to affected area., # 354 mL, 2 Refills, Maintenance, 02/18/22 15:05:00 EDT, Lotion, [facility] #[id number], Partial fill upon patient request if the prescrip... Start Date: 02/18/22 Status: Ordered Farxiga 5 mg oral tablet 1 tablet, By Mouth, Daily, # 90 tablet, 0 Refills, 10/17/21 11:02:00 EST, [facility] #[id number], 175.2, cm, 10/09/21 10:42:00 EST, Height Start [...] Refills, Maintenance, 12/01/21 13:22:00 EDT, ER Tablet, [facility] #[id number], 175.2, cm, 10/09/21 10:42:00 EST, Height Start Date: 12/01/21 Stop Date: 05/30/22 Status: Ordered metFORMIN 1000 mg oral tablet 1 tablet = 1,000 mg, By Mouth, 2 times a day, with meals, # 180 tablet, 2 Refills, Maintenance, 12/03/21 15:55:00 EDT, Tablet, [facility] #[id number], 175.2, cm, 09/05/21 9:45:00 EST, Height Start Date: 12/03/21 Stop Date: 08/30/22 Status: Ordered oxyCODONE 5 mg oral tablet See Instructions, 1 tablet By Mouth Every 4-6 hours NEEDED FOR PAIN TAKE WITH FOOD. NO DRIVING. CAN CAUSE CONSTIPATION., Refills 0, Tot. Refills 0, Maintenance, 11/18/21 10:38:00 EST, InstructionsReplace Required Details, Partial fill upon patien... Start Date: 11/18/21 Status: Ordered Silvadene 1% cream 1 application, Topically, Daily, # 50 Gm, 0 Refills, Acute 02/19/22 14:05:00 EDT, 02/05/22 14:05:00EDT, Cream, [facility] #[id number], Partial fill upon patient request if the prescription is for a schedule II opioid drug., 1 application Topical... Start Date: 02/05/22 Stop Date: 02/19/22 Status: Ordered silver sulfADIAZINE 1% topical cream [...] oldest [Reference Range]: 1 Height 175.2 cm (02/11/22 10:40 AM) Weight 123 kg (02/11/22 10:40 AM) Pulse Rate [55-90 bpm] 86 bpm (02/11/22 10:40 AM) Body Mass Index [18.5-24.99] 40.07 *>HHI* (02/11/22 10:40 AM) Blood Pressure [90-138/55-84 mm Hg] 152/ 82mm Hg *H* (02/11/22 10:40 AM) Temperature [96.8-100.4 DegF] 97.4 DegF (02/11/22 10:40 AM) Blood pressure sites Arm, left (02/11/22 10:40 AM) Temperature Route Temporal (02/11/22 10:40 AM) Weight Obtained Via Patient lift hanging scale (02/11/22 10:40 AM) Social History Social History Type Response Smoking Status Never smoker entered on: 03/03/18 Sex
--- OUTSIDE RECORDS SUMMARY | 2023-01-03 01:00 | XMS_ITS | Continuity of Care Document ---
Author Name Unknown Organization [facility] Adult Address [address] [place] [id number]- Care Team Providers Care Air Crew Officer Name Role Phone Socrates KEMP, Jonathan Breaux Primary Care Physician [phone] Encounter [facility] [place] Date(s): 04/02/20 - 04/09/20 [facility] Adult [address] [place] [id number]- [facility] Encounter Diagnosis DM (diabetes mellitus), type 2(Discharge Diagnosis) - 04/02/20 Hypokalemia(Discharge Diagnosis) - 04/02/20 HTN (hypertension)(Discharge Diagnosis) - 04/02/20 Hyperlipidemia(Discharge Diagnosis) - 04/02/20 Morbid obesity with BMI of 50.0-59.9, adult(Discharge Diagnosis) - 04/02/20 BALDEV on CPAP(Discharge Diagnosis) - 04/02/20 Left shoulder pain(Discharge Diagnosis) - 04/02/20 Attending Physician: Not on Staff, Attending MD [...] 07/18/19 13:55:22 EDT, Route to Pharmacy Electronically, [id number], [facility] #[id number] Start Date: 07/18/19 Status: Ordered atorvastatin 10 mg oral tablet 1 tablet = 10 mg, By Mouth, Daily, # 90 tablet, 3 Refills, Maintenance, 11/24/19 9:49:00 EST, [facility] #[id number], 175.2, cm, 11/24/19 9:25:00 EST, Height Start Date: 11/24/19 Stop Date: 06/21/20 Status: Ordered benazepril 20 mg oral tablet 1 tablet = 20 mg, By Mouth, Daily, # 90 tablet, 2 Refills, Maintenance, 04/02/20 10:06:00 EDT, Tablet, [facility] #[id number], 175.2, cm, 04/02/20 10:05:00 EDT, Height Start [...] Refills, Maintenance, 11/24/19 9:51:00 EST, ER Tablet, [facility] #[id number], 175.2, cm, 11/24/19 9:25:00 EST, Height Start Date: 11/24/19 Stop Date: 08/20/20 Status: Ordered indomethacin 50 mg oral capsule 1 capsule = 50 mg, By Mouth, 3 times a day, PRN for arthritis, with food or milk, # 30 capsule, 0 Refills, Maintenance, 04/02/20 12:35:00 EDT, Capsule, [facility] #[id number], 175.2, cm, 04/02/20 10:05:00 EDT, Height Start [...] DM (diabetes mellitus), type 2 Discharge Diagnosis 04/02/20 Hypokalemia Discharge Diagnosis 04/02/20 HTN (hypertension) Discharge Diagnosis 04/02/20 Hyperlipidemia Discharge Diagnosis 04/02/20 Morbid obesity with BMI of 50.0-59.9, adult Discharge Diagnosis 04/02/20 BALDEV on CPAP Discharge Diagnosis 04/02/20 Left shoulder pain Discharge Diagnosis 04/02/20 Vital Signs Most recent to oldest [Reference Range]: 1 2 Height 175.2 cm (04/02/20 10:05 AM) 175.2 cm (04/02/20 9:44 AM) Weight 129 kg (04/02/20 9:44 AM) Body Mass Index [18.5-24.99] 42.03 *>HHI* (04/02/20 9:44 AM) Blood Pressure [90-138/55-84 mm Hg] 130/ 90mm Hg (04/02/20 10:05 AM) 140/84mm Hg *H* (04/02/20 9:44 AM) Temperature [96.8-100.4 DegF] 98 DegF (04/02/20 9:44 AM) Blood pressure sites Arm, left (04/02/20 10:05 AM) Arm, left (04/02/20 9:44 AM) Temperature Route Oral (04/02/20 9:44 AM) Social History Social History Type Response Smoking Status Never smoker entered on: 03/03/18 Sex
--- OUTSIDE RECORDS SUMMARY | 2023-01-03 01:00 | XMS_ITS | Continuity of Care Document ---
Author Name Unknown Organization [facility] Adult Address [address] [place] [phone]- Care Team Providers Care Cat Sitter Name Role Phone Jonathan Crowell NP Primary Care Physician Encounter [facility] [place] Date(s): 02/10/22 - 02/17/22 [facility] Adult [address] [place] [phone]- Encounter Diagnosis DM (diabetes mellitus), type 2(Discharge Diagnosis) - 02/10/22 HTN (hypertension)(Discharge Diagnosis) - 02/10/22 Hyperlipidemia(Discharge Diagnosis) - 02/10/22 Morbid obesity with BMI of 50.0-59.9, adult(Discharge Diagnosis) - 02/10/22 BALDEV on CPAP(Discharge Diagnosis) - 02/10/22 Annual physical exam(Discharge Diagnosis) - 02/10/22 Burn(Discharge Diagnosis) - 02/10/22 Attending Physician: Izaiah PRICE, [facility] Referring Physician: Jonathan Crowell NP Allergies, Adverse Reactions, Alerts No Known Allergies [...] 09/26/21 13:46:00 EST, Route to Pharmacy Electronically, [facility] #[id number], 175.2, cm, 09/05/21 9:45:00 EST, Height Start Date: 09/26/21 Status: Ordered atorvastatin 10 mg oral tablet 1 tablet = 10 mg, By Mouth, Daily, # 90 tablet, 1 Refills, Maintenance, 09/26/21 13:22:00 EST, [facility] #[id number], 175.2, cm, 09/05/21 9:45:00 EST, Height Start Date: 09/26/21 Status: Ordered benazepril 40 mg oral tablet 1 tablet = 40 mg, By Mouth, Daily, # 90 tablet, 3 Refills, Maintenance, 10/09/21 10:38:00 EST, Tablet, [facility] #[id number], Partial fill upon patient request if the prescription is for a schedule II opioid drug. Dose increase, 175.2, cm, 10/09... Start Date: 10/09/21 Status: Ordered Farxiga 5 mg oral tablet 1 tablet, By Mouth, Daily, # 90 tablet, 0 Refills, 10/17/21 11:02:00 EST, [facility] #[id number], 175.2, cm, 10/09/21 10:42:00 EST, Height Start [...] Refills, Maintenance, 12/01/21 13:22:00 EDT, ER Tablet, [facility] #[id number], 175.2, cm, 10/09/21 10:42:00 EST, Height Start Date: 12/01/21 Stop Date: 05/30/22 Status: Ordered metFORMIN 1000 mg oral tablet 1 tablet = 1,000 mg, By Mouth, 2 times a day, with meals, # 180 tablet, 2 Refills, Maintenance, 12/03/21 15:55:00 EDT, Tablet, [facility] #[id number], 175.2, cm, 09/05/21 9:45:00 EST, Height Start [...] 02/07/22 12:23:00 EDT, Route to Pharmacy Electronically, [facility] #[id number], Partial fill upon patient req... Start Date: 02/07/22 Stop Date: 02/18/22 Status: Ordered Silvadene 1% cream 1 application, Topically, Daily, # 50 Gm, 0 Refills, Acute 02/19/22 14:05:00 EDT, 02/05/22 14:05:00EDT, Cream, [facility] #[id number], Partial fill upon patient request if the prescription is for a schedule II opioid drug., 1 application Topical... Start Date: 02/05/22 Stop Date: 02/19/22 Status: Ordered Silvadene 1% cream 1 application, Topically, 2 times a day, # 400 Gm, 0 Refills, Acute 02/18/22 11:03:00 EDT, 02/11/2211:02:00 EDT, Cream, [facility] #[id number], Partial fill upon patient request if the [...] DM (diabetes mellitus), type 2 Discharge Diagnosis 02/10/22 HTN (hypertension) Discharge Diagnosis 02/10/22 Hyperlipidemia Discharge Diagnosis 02/10/22 Morbid obesity with BMI of 50.0-59.9, adult Discharge Diagnosis 02/10/22 BALDEV on CPAP Discharge Diagnosis 02/10/22 Annual physical exam Discharge Diagnosis 02/10/22 Burn Discharge Diagnosis 02/10/22 Vital Signs Most recent to oldest [Reference Range]: 1 2 Height 175.2 cm (02/10/22 1:37 PM) 175.2 cm (02/10/22 12:51 PM) Blood Pressure [90-138/55-84 mm Hg] 158/ 97mm Hg *H* (02/10/22 1:37 PM) Social History Social History Type Response Smoking Status Never smoker entered on: 03/03/18 Sex
--- OUTSIDE RECORDS SUMMARY | 2023-01-03 01:00 | XMS_ITS | Continuity of Care Document ---
Author Name Unknown Organization [facility] Adult Address [address] [place] [address]- Care Team Providers Care Detective Bowling Alley Name Role Phone Jonathan Crowell NP Primary Care Physician Encounter [facility] [place] Date(s): 09/05/21 - 09/12/21 [facility] [address] [place] [address]- Encounter Diagnosis Morbid obesity with BMI of 50.0-59.9, adult(Discharge Diagnosis) - 09/05/21 BALDEV on CPAP(Discharge Diagnosis) - 09/05/21 Ganglion of left ankle(Discharge Diagnosis) - 09/05/21 HTN (hypertension)(Discharge Diagnosis) - 09/05/21 DM (diabetes mellitus), type 2(Discharge Diagnosis) - 09/05/21 Attending Physician: Not on Staff, Attending MD Referring Physician: Jonathan Crowell NP Allergies, [...] 09/07/20 13:34:00 EST, Route to Pharmacy Electronically, [facility] #[id number], 175.2, cm, 09/07/20 12:25:00 EST, Height Start Date: 09/07/20 Status: Ordered atorvastatin 10 mg oral tablet 1 tablet = 10 mg, By Mouth, Daily, # 90 tablet, 3 Refills, Maintenance, 09/07/20 13:34:00 EST, [facility] #[id number], 175.2, cm, 09/07/20 12:25:00 EST, Height Start Date: 09/07/20 Status: Ordered benazepril 20 mg oral tablet 1 tablet = 20 mg, By Mouth, Daily, # 90 tablet, 1 Refills, Maintenance, 09/11/21 13:36:00 EST, Tablet, [facility] #[id number], 175.2, cm, 09/05/21 9:45:00 EST, Height Start Date: 09/11/21 Status: Ordered Farxiga 5 mg oral tablet 1 tablet, By Mouth, Daily, # 90 tablet, 0 Refills, [facility] #[id number], 175.2, cm, 09/07/2012:25:00 EST, Height Start Date: [...] Refills, Maintenance, 09/07/20 13:22:00 EST, ER Tablet, [facility] #[id number], 175.2, cm, 09/07/20 12:25:00 EST, Height Start Date: 09/07/20 Stop Date: 12/01/21 Status: Ordered metFORMIN 1000 mg oral tablet 1 tablet = 1,000 mg, By Mouth, 2 times a day, with meals, # 180 tablet, 2 Refills, Maintenance, 12/03/21 15:55:00 EDT, Tablet, [facility] #[id number], 175.2, cm, 09/05/21 9:45:00 EST, Height Start Date: 12/03/21 Stop Date: 08/30/22 Status: Ordered metFORMIN 1000 mg oral tablet 1 tablet = 1,000 mg, By Mouth, 2 times a day, for 90 days, with meals, # 180 tablet, 0 Refills, Hard Stop 12/03/21 15:55:00 EDT, 09/04/21 15:55:00 EST, Tablet, [facility] #[id number], 175.2, cm,06/14/21 8:20:00 EDT, Height Start Date: [...] Dates Health Status Cl inical Service Informant BALDEV on CPAP Discharge Diagnosis 09/05/21 Ganglion of left ankle Discharge Diagnosis 09/05/21 Morbid obesity with BMI of 50.0-59.9, adult Discharge Diagnosis 09/05/21 HTN (hypertension) Discharge Diagnosis 09/05/21 DM (diabetes mellitus), type 2 Discharge Diagnosis 09/05/21 Vital Signs Most recent to oldest [Reference Range]: 1 2 Height 175.2 cm (09/05/21 9:45 AM) 175.2 cm (09/05/21 9:14 AM) Weight 132.2 kg (09/05/21 9:14 AM) Oxygen Saturation [94-100 %] 98 % (09/05/21 9:14 AM) Pulse Rate [55-90 bpm] 78 bpm (09/05/21 9:14 AM) Body Mass Index [18.5-24.99] 43.07 *>HHI* (09/05/21 9:14 AM) Blood Pressure [90-138/55-84 mm Hg] 148/ 88mm Hg *H* (09/05/21 9:45 AM) 159/90mm Hg *H* (09/05/21 9:14 AM) Respiratory Rate [16-30 br/min] 18 br/mi n (09/05/21 9:14 AM) Mode of Delivery (Oxygen) Room air (09/05/21 9:14 AM) Blood pressure sites Arm, left (09/05/21 9:45 AM) Arm, right (09/05/21 9:14 AM) Weight Obtained Via Standing scale (09/05/21 9:14 AM) Social History Social History Type Response Smoking Status Never smoker entered on: 03/03/18 Sex
[2023-01-03 01:49] LABS: Appearance Urine Clear; Color Urine Yellow; Glucose Urine UA >=1000 mg/dL (Negative); Leukocyte Esterase Urine Negative (Negative); Nitrite Urine Negative (Negative); PH 5.5 (5.0-9.0); Specific Gravity - Urine 1.025 (1.005-1.025); UMIC TRIGGER UACC YES; Urine Blood Negative (Negative); Urine Ketones Trace mg/dL (Negative); Urine Protein Trace mg/dL (Neg-Trace)
[2023-01-03 02:16] LABS: Bacteria Urine None Seen (None Seen); Hyaline Casts Urine 0-2 /LPF (0-2); RBC Urine 0-2 /HPF (0-2); Squamous Epithelial Cell Urine 0-2 /HPF (0-2); WBC Urine 0-5 /HPF (0-5)
== END 2023-01-03 01:35 | disposition home or self-care (01) ==
PROVIDERS: Physician Assistant Medical; Emergency Provider Emergency Medicine; PCP Nurse Practitioner Family
DX: L03.116 Cellulitis of left lower limb (principal); M79.662 Pain in left lower leg; Z20.822 Contact with and (suspected) exposure to COVID-19
CPT/HCPCS: 80053; 81001; 81003; 83735; 85025; 85652; 86140; 87635; 93971; 99284